=== PATIENT | male | born 1950 | race Caucasian/White ===

== ENCOUNTER 2016-09-02 10:28 | Emergency (ER) | payer MEDICARE, BC ==
[~2016-09-02] VITALS: Ht 180.3 cm; Wt 100.0 kg
[~2016-09-02 10:28] MED LIST: AMIO200T42 PO; AMOX-367 PO; AMOX125T PO; AMOX1TAB61 PO; APIX5TAB PO; ARIP20TA8 PO; CEFD300C2 PO; CYCL-259 PO; DAPT500V6 IV; DOCU-30 PO; DOXY100C2 PO; DOXY100T PO; ECON15CR TP; FENT-58 TP; FLUT15.88 NS; FLUV150C2 PO; FURO20TA3 PO; HYDR-3138 PO; HYDR2TAB40 PO; LACT1CAP44 PO; LEVO50TA5 PO; LOSA25TA5 PO; METH-438 PO; MISO100T4 PO; NABU500T PO; ONDA4TAB13 SL; OXAZ10CA PO; OXYC20TA2 PO; PANT40TA3 PO; PANT40TA5 PO; POLY17PO5 PO; PRED10TA PO; PREG150C PO; PROP20TA PO; RIFA300C3 PO; SENN8.6T4 PO; TAMS0.4C2 PO; VERA120T5 PO; WARF10TA6 PO
[2016-09-02] MEDS ORDERED: ONDANSETRON 2MG/ML, 2ML IVPush ONE (11:00)
[2016-09-02] MEDS ORDERED: SODIUM CHLORIDE FLUSH 10ML SYR IVF ONE (11:00)
[2016-09-02] MEDS ORDERED: MORPHINE SULFATE 4 MG/ML, 1ML ONE ×2 (11:16→11:55)
[2016-09-02] MEDS ORDERED: ONDANSETRON 2MG/ML, 2ML ONE (11:16)
[2016-09-02] MEDS: MORPHINE SULFATE 4 MG/ML, 1ML IVPush PRN ×2 (11:28→12:01)
[2016-09-02 11:49] LABS: HEMOGLOBIN 12.9 g/dL (13.7-18.0)
[2016-09-02 12:02] LABS: BLOOD UREA NITROGEN 19 mg/dL (7-18)
[2016-09-02 12:07] LABS: ASPARTATE AMINO TRANSFERASE 44 U/L (15-37)
[2016-09-02] MEDS ORDERED: PROPOFOL 0 ML IV ONE (12:41)
[2016-09-02] MEDS ORDERED: PROPOFOL 10 MG/ML, 20ML ONE (12:42)
[2016-09-02] MEDS ORDERED: PROPOFOL 10 MG/ML, 20ML IVP ONE (13:00)
[2016-09-02 15:22] VITALS: BP 109/51
== END 2016-09-02 16:50 | disposition home or self-care (01) ==
LOC: ED 13:07
DX: T84.021A Dislocation of internal left hip prosthesis, initial encounter (principal); I10 Essential (primary) hypertension; F32.9 Major depressive disorder, single episode, unspecified; I48.91 Unspecified atrial fibrillation; W05.0XXA Fall from non-moving wheelchair, initial encounter; Y93.89 Activity, other specified; Y92.129 Unspecified place in nursing home as the place of occurrence of the external cause; Y99.8 Other external cause status; N40.0 Benign prostatic hyperplasia without lower urinary tract symptoms; Z86.718 Personal history of other venous thrombosis and embolism; Z98.890 Other specified postprocedural states
CPT/HCPCS: 27265; 36415; 71010; 73501; 73502; 80053; 85025; 85610; 85730; 93005; 96374; 96375; 96376; 99152; 99285; J2405; J2704

== ENCOUNTER 2016-09-19 16:08 | Inpatient (IN) | payer MEDICARE, BC ==
[~2016-09-19] VITALS: Ht 180.3 cm; Wt 107.0 kg
[2016-09-19] MEDS ORDERED: SODIUM CHLORIDE FLUSH 10ML SYR IVF ONE (16:30)
[2016-09-19] MEDS ORDERED: ONDANSETRON 2MG/ML, 2ML IVPush ONE (16:30)
[2016-09-19] MEDS ORDERED: DOCU-30 PO (16:31)
[2016-09-19] MEDS ORDERED: METH20TA5 PO (16:31)
[2016-09-19] MEDS ORDERED: PROP20TA PO (16:31)
[2016-09-19] MEDS ORDERED: OXYC20TA2 PO (16:31)
[2016-09-19] MEDS ORDERED: FLUV150C2 PO (16:31)
[2016-09-19] MEDS ORDERED: VERA180T56 PO (16:32)
[2016-09-19] MEDS ORDERED: LEVO50TA PO (16:32)
[2016-09-19] MEDS ORDERED: SENN-31 PO (16:32)
[2016-09-19] MEDS ORDERED: HYDROmorphone 1 MG/ML, 1ML ONE ×2 (16:35→17:39)
[2016-09-19] MEDS ORDERED: ONDANSETRON 2MG/ML, 2ML ONE (16:35)
[2016-09-19] MEDS: HYDROmorphone 1 MG/ML, 1ML IVPush PRN ×2 (16:37→17:41)
[2016-09-19] MEDS ORDERED: PROPOFOL 10 MG/ML, 20ML IVPush ONE (18:00)
[2016-09-19] MEDS ORDERED: PROPOFOL 10 MG/ML, 20ML ONE (18:06)
[2016-09-19 19:03] LABS: HEMOGLOBIN 11.7 g/dL (13.7-18.0)
[2016-09-19 19:15] LABS: BLOOD UREA NITROGEN 21 mg/dL (7-18)
[2016-09-19] MEDS ORDERED: METOPROLOL TARTRATE 25 MG TABLET PO ONE (19:30)
[2016-09-19] MEDS ORDERED: HYDROcodone/APAP 5/325 TABLET PO PRN (20:00)
[2016-09-19] MEDS ORDERED: POLYETHYLENE GLYCOL 17 GM PACKET PO PRN (20:30)
[2016-09-19] MEDS ORDERED: ONDANSETRON 2MG/ML, 2ML IVP PRN (20:30)
[2016-09-19] MEDS ORDERED: MORPHINE SULFATE 4 MG/ML, 1ML IVPush PRN (20:30)
[2016-09-19] MEDS ORDERED: ACETAMINOPHEN 325 MG TABLET PO PRN (20:30)
[2016-09-19] MEDS ORDERED: OxyconTIN ER 20 MG TAB.ER PO SCH (21:00)
[2016-09-19] MEDS ORDERED: PROPRANOLOL 20 MG TABLET PO SCH (21:00)
[2016-09-19] MEDS: FLUVOXAMINE MALEATE 150 MG HOMEMEDPO SCH (21:00)
[2016-09-19 21:02] LABS: IS PT STATUS REG ER OR PRE ER? YES
[2016-09-19 21:25] VITALS: BP 137/74
[2016-09-19] MEDS: AMIODARONE 200 MG TABLET PO SCH (22:12)
[2016-09-19] MEDS: DOXYCYCLINE 100MG TABLET PO SCH (22:12)
[2016-09-19] MEDS: PREGABALIN 150 MG CAPSULE PO SCH (22:12)
[2016-09-19] MEDS: TAMSULOSIN 0.4 MG CAP.ER.24H PO SCH (22:12)
[2016-09-19] MEDS: SENNA/DOCUSATE TABLET PO SCH (22:12)
[2016-09-19] MEDS: OXAZEPAM 10 MG CAPSULE PO SCH (22:13)
[2016-09-19] MEDS: ENOXAPARIN 40 MG/0.4 ML SQ SCH (22:15)
[2016-09-19] MEDS: SODIUM CHLORIDE FLUSH 10ML SYR IVF SCH (22:18)
[2016-09-19] MEDS: METHYLPHENIDATE 10 MG TABLET PO SCH (22:18)
[2016-09-19] MEDS: ARIPIPRAZOLE 10 MG TABLET PO SCH (22:23)
[2016-09-20 01:23] VITALS: BP 123/77
[2016-09-20] MEDS: LEVOTHYROXINE 50 MCG TABLET PO SCH (05:08)
[2016-09-20] MEDS: CEFTRIAXONE PMX 2GM/50ML 50 ML IV SCH (05:08)
[2016-09-20 05:50] LABS: HEMOGLOBIN 11.1 g/dL (13.7-18.0)
[2016-09-20] MEDS ORDERED: METOPROLOL TARTRATE 25 MG TABLET PO SCH ×2 (06:00)
[2016-09-20 06:11] LABS: ASPARTATE AMINO TRANSFERASE 14 U/L (15-37); BLOOD UREA NITROGEN 18 mg/dL (7-18)
[2016-09-20 06:20] LABS: IS PT STATUS REG ER OR PRE ER? NO
[2016-09-20 08:15] VITALS: BP 123/69
[2016-09-20] MEDS: SODIUM CHLORIDE FLUSH 10ML SYR IVF SCH ×2 (09:00→21:34)
[2016-09-20] MEDS ORDERED: PROPRANOLOL 20 MG TABLET PO SCH (09:00)
[2016-09-20] MEDS: MISOPROSTOL 100 MCG TABLET PO SCH (09:00)
[2016-09-20] MEDS: FLUTICASONE NASAL SPRAY 16GM NAS SCH (09:00)
[2016-09-20] MEDS: OXAZEPAM 10 MG CAPSULE PO SCH ×3 (10:30→21:29)
[2016-09-20] MEDS: PREGABALIN 150 MG CAPSULE PO SCH ×2 (10:30→21:28)
[2016-09-20] MEDS: AMIODARONE 200 MG TABLET PO SCH (10:31)
[2016-09-20] MEDS: DOXYCYCLINE 100MG TABLET PO SCH ×2 (10:31→21:28)
[2016-09-20] MEDS: OxyconTIN ER 10 MG TAB.ER PO SCH ×3 (10:31→21:33)
[2016-09-20] MEDS: METHYLPHENIDATE 10 MG TABLET PO SCH ×2 (10:33→21:28)
[2016-09-20 11:19] LABS: IS PT STATUS REG ER OR PRE ER? NO
[2016-09-20 14:30] VITALS: BP 109/66
[2016-09-20 20:29] VITALS: BP 111/68
[2016-09-20] MEDS: FLUVOXAMINE MALEATE 150 MG HOMEMEDPO SCH (21:00)
[2016-09-20] MEDS: ARIPIPRAZOLE 10 MG TABLET PO SCH (21:00)
[2016-09-20] MEDS: SENNA/DOCUSATE TABLET PO SCH (21:29)
[2016-09-20] MEDS: TAMSULOSIN 0.4 MG CAP.ER.24H PO SCH (21:29)
[2016-09-20] MEDS: ENOXAPARIN 40 MG/0.4 ML SQ SCH (21:35)
[2016-09-21 02:25] VITALS: BP 112/62
[2016-09-21] MEDS: LEVOTHYROXINE 50 MCG TABLET PO SCH (05:18)
[2016-09-21] MEDS: CEFTRIAXONE PMX 2GM/50ML 50 ML IV SCH (05:18)
[2016-09-21 08:30] VITALS: BP 107/62
[2016-09-21] MEDS ORDERED: AMIODARONE 200 MG TABLET PO SCH (09:00)
[2016-09-21] MEDS ORDERED: VERAPAMIL ER 180MG TABLET.ER PO SCH (09:00)
[2016-09-21] MEDS: SODIUM CHLORIDE FLUSH 10ML SYR IVF SCH (10:18)
[2016-09-21] MEDS: FLUTICASONE NASAL SPRAY 16GM NAS SCH (10:19)
[2016-09-21] MEDS: PREGABALIN 150 MG CAPSULE PO SCH (10:19)
[2016-09-21] MEDS: DOXYCYCLINE 100MG TABLET PO SCH (10:19)
[2016-09-21] MEDS: OXAZEPAM 10 MG CAPSULE PO SCH (10:19)
[2016-09-21] MEDS: OxyconTIN ER 10 MG TAB.ER PO SCH (10:20)
[2016-09-21] MEDS: MISOPROSTOL 100 MCG TABLET PO SCH (10:22)
[2016-09-21] MEDS: METHYLPHENIDATE 10 MG TABLET PO SCH (11:36)
[2016-09-21] MEDS ORDERED: POLY17PO5 PO (13:35)
[2016-09-21] MEDS ORDERED: CEFD300C2 PO (13:35)
[2016-09-21] MEDS ORDERED: APIX5TAB PO (13:35)
[2016-09-21] MEDS ORDERED: AMIO200T42 PO (13:35)
[2016-09-21 14:37] VITALS: BP 101/64
== END 2016-09-21 15:30 | disposition home or self-care (01) | DRG 559 ==
LOC: ED 19:04 → EDIP 19:31 → 5SO 21:09
PROC: 0SS9XZZ Reposition Right Hip Joint, External Approach (ICD-10-PCS; principal; 2016-09-19)
DX: T84.020A Dislocation of internal right hip prosthesis, initial encounter (principal); E43 Unspecified severe protein-calorie malnutrition; I47.2 Ventricular tachycardia; N39.0 Urinary tract infection, site not specified; D68.69 Other thrombophilia; Y79.2 Prosthetic and other implants, materials and accessory orthopedic devices associated with adverse incidents; E03.9 Hypothyroidism, unspecified; F32.9 Major depressive disorder, single episode, unspecified; F41.9 Anxiety disorder, unspecified; Z79.2 Long term (current) use of antibiotics; I10 Essential (primary) hypertension; N40.0 Benign prostatic hyperplasia without lower urinary tract symptoms; F90.9 Attention-deficit hyperactivity disorder, unspecified type; Z96.643 Presence of artificial hip joint, bilateral; F42.9 Obsessive-compulsive disorder, unspecified; K82.9 Disease of gallbladder, unspecified; I48.2 Chronic atrial fibrillation; M54.9 Dorsalgia, unspecified; G89.29 Other chronic pain; G43.909 Migraine, unspecified, not intractable, without status migrainosus; D64.9 Anemia, unspecified; R31.9 Hematuria, unspecified; M16.11 Unilateral primary osteoarthritis, right hip; G25.0 Essential tremor; Z87.891 Personal history of nicotine dependence; Z86.718 Personal history of other venous thrombosis and embolism; Z87.440 Personal history of urinary (tract) infections; Z86.14 Personal history of Methicillin resistant Staphylococcus aureus infection; Z91.041 Radiographic dye allergy status; Z68.32 Body mass index [BMI] 32.0-32.9, adult; Z79.01 Long term (current) use of anticoagulants
CPT/HCPCS: 27265; 36415; 71010; 80048; 80053; 81001; 82040; 83735; 84439; 84443; 84484; 85025; 87077; 87086; 87186; 93005; 93306; 99152; 99153; J0696; J1170; J1650; J2405; J2704

== ENCOUNTER → 2016-11-22 | Outpatient (CLI) | payer MEDICARE, BC ==
[~2016-11-22] MED LIST changes: -CEFD300C2 PO; +CEFD300C37 PO; +LEVO50TA PO; +METH20TA5 PO; +SENN-31 PO; +VERA180T56 PO; +VISIPAQUE 270 MG/ML, 50ML BOTTLE ONE
== END | disposition home or self-care (01) ==
LOC: RAD 08:16
PROVIDERS: ATTEND Internal Medicine Infectious Disease
DX: Z45.2 Encounter for adjustment and management of vascular access device (principal); Z79.2 Long term (current) use of antibiotics
CPT/HCPCS: 36569; 76937; 77001; C1751; Q9966

== ENCOUNTER → 2017-01-17 | Outpatient (CLI) | payer MEDICARE, BC ==
[~2017-01-17] MED LIST changes: -VISIPAQUE 270 MG/ML, 50ML BOTTLE ONE
== END | disposition home or self-care (01) ==
LOC: EDSTATUS 01-06 13:00 → CFH 10:51
PROVIDERS: ATTEND Psychiatry & Neurology Neurology
DX: G25.2 Other specified forms of tremor (principal); G93.89 Other specified disorders of brain; G31.9 Degenerative disease of nervous system, unspecified
CPT/HCPCS: 70551

== ENCOUNTER 2017-03-02 08:20 | Emergency (ER) | payer MEDICARE, BC ==
[~2017-03-02] VITALS: Ht 180.3 cm; Wt 110.0 kg
[~2017-03-02 08:20] MED LIST changes: +ARIP20TA5 PO; -ARIP20TA8 PO; +DOCU-131 PO; -DOCU-30 PO; -HYDR-3138 PO; +HYDR-3237 PO; +SENN-87 PO; -SENN8.6T4 PO
[2017-03-02 09:19] LABS: HEMOGLOBIN 12.3 g/dL (13.7-18.0); WHITE BLOOD COUNT 4.9 x10^3/uL (3.4-10)
[2017-03-02 09:29] LABS: BLOOD UREA NITROGEN 23 mg/dL (7-18)
[2017-03-02 13:28] VITALS: BP 134/79
[2017-03-02] MEDS ORDERED: PERMETHRIN CRM 5%, 60GM TP SCH (14:00)
[2017-03-02] MEDS ORDERED: POLYETHYLENE GLYCOL 17 GM PACKET PO PRN (14:00)
[2017-03-02] MEDS ORDERED: ENOXAPARIN 100 MG/ML SQ SCH (14:30)
[2017-03-02] MEDS ORDERED: OXAZEPAM 10 MG CAPSULE PO SCH (16:00)
[2017-03-02] MEDS ORDERED: WARFARIN 2.5 MG TABLET PO-COUM SCH (18:00)
[2017-03-02] MEDS ORDERED: METHYLPHENIDATE HCL 30 MG PO SCH (21:00)
[2017-03-02] MEDS ORDERED: PREGABALIN 150 MG CAPSULE PO SCH (21:00)
[2017-03-02] MEDS ORDERED: CEFDINIR 300 MG CAPSULE PO SCH (21:00)
[2017-03-02] MEDS ORDERED: ARIPIPRAZOLE 10 MG PO SCH (21:00)
[2017-03-02] MEDS ORDERED: VERAPAMIL ER 180MG TABLET.ER PO SCH (21:00)
[2017-03-02] MEDS ORDERED: TAMSULOSIN 0.4 MG CAP.ER.24H PO SCH (21:00)
[2017-03-02] MEDS ORDERED: FLUVOXAMINE MALEATE 150 MG PO SCH (21:00)
[2017-03-03] MEDS ORDERED: LEVOTHYROXINE 50 MCG TABLET PO SCH (06:00)
[2017-03-03] MEDS ORDERED: MISOPROSTOL 25 MCG TABLET PO SCH (09:00)
[2017-03-03] MEDS ORDERED: FLUTICASONE PROPIONATE NS SCH (09:00)
[2017-03-03] MEDS ORDERED: AMIODARONE 200 MG TABLET PO SCH (09:00)
[2017-03-03] MEDS ORDERED: DOCUSATE 100 MG CAPSULE PO SCH (09:00)
== END 2017-03-02 15:26 | disposition home or self-care (01) ==
LOC: ED 09:44
DX: I87.2 Venous insufficiency (chronic) (peripheral) (principal); B86 Scabies; I10 Essential (primary) hypertension
CPT/HCPCS: 36415; 80048; 82040; 85025; 85610; 93005; 93970; 99285

== ENCOUNTER 2017-06-28 20:05 | Emergency (ER) | payer MEDICARE, BC ==
[~2017-06-28] VITALS: Ht 180.3 cm; Wt 108.8 kg
[2017-06-28 21:11] LABS: MICROSCOPIC NOT IND
[2017-06-28 21:12] LABS: CULTURE INDICATED? NO
[2017-06-28 21:20] LABS: BASOPHILS # (AUTO) 0.05 x10^3/uL (0-0.1); BASOPHILS % (AUTO) 1 % (0-1); EOSINOPHILS # (AUTO) 0.25 x10^3/uL (0-0.4); EOSINOPHILS % (AUTO) 4 % (1-7); LYMPHOCYTES # (AUTO) 1.05 x10^3/uL (1-3.4); LYMPHOCYTES % (AUTO) 18 % (22-44); MD NO; MEAN CORPUSCULAR HEMOGLOBIN 26.9 pg (27.5-34.5); MEAN CORPUSCULAR HGB CONC 32.2 g/dL (33.2-36.2); MEAN CORPUSCULAR VOLUME 83.3 fL (81-97); MEAN PLATELET VOLUME 7.8 fL (7.4-10.4); MONOCYTES # (AUTO) 0.75 x10^3/uL (0.2-0.8); MONOCYTES % (AUTO) 13 % (2-9); NEUTROPHILS # (AUTO) 3.59 x10^3/uL (1.8-6.8); NEUTROPHILS % (AUTO) 63 % (42-75); PLATELET COUNT 224 x10^3/uL (130-400); RED BLOOD COUNT 4.99 x10^6/uL (4.38-5.82); RED CELL DISTRIBUTION WIDTH 17.3 % (9.4-14.8)
[2017-06-28 21:27] LABS: ALANINE AMINOTRANSFERASE 21 U/L (12-78); ALBUMIN 3.6 g/dL (3.4-5.0); ANION GAP 8 mmol/L (5-15); CALCIUM 8.7 mg/dL (8.5-10.1); CHLORIDE 110 mmol/L (98-107); CREATININE 1.31 mg/dL (0.7-1.3)
[2017-06-28 21:29] LABS: ALKALINE PHOSPHATASE 103 U/L (45-117); BILIRUBIN,TOTAL 0.3 mg/dL (0.2-1.0); TOTAL PROTEIN 7.4 g/dL (6.4-8.2)
[2017-06-28] MEDS ORDERED: TRAZ100T15 PO (21:37)
[2017-06-28] MEDS ORDERED: WARF2.5T73 PO (21:37)
[2017-06-28 22:00] VITALS: BP 135/69
== END 2017-06-28 23:04 ==
LOC: ED 21:58
DX: M54.5 Low back pain (principal); B02.9 Zoster without complications; F42.9 Obsessive-compulsive disorder, unspecified; I10 Essential (primary) hypertension; Z86.718 Personal history of other venous thrombosis and embolism
CPT/HCPCS: 36415; 76770; 80053; 81003; 83690; 85025; 99285

== ENCOUNTER 2017-07-13 18:36 | Emergency (ER) | payer MEDICARE, BC ==
[~2017-07-13] VITALS: Ht 180.3 cm; Wt 110.0 kg
[~2017-07-13 18:36] MED LIST changes: +TRAZ100T15 PO; +WARF2.5T73 PO
[2017-07-13] MEDS ORDERED: DIAZEPAM 5 MG/ML, 10ML VIAL IVPush ONE (19:00)
[2017-07-13] MEDS ORDERED: HYDROmorphone 1 MG/ML, 1ML IVPush PRN (19:00)
[2017-07-13] MEDS ORDERED: SODIUM CHLORIDE FLUSH 10ML SYR IVF ONE (19:00)
[2017-07-13 19:31] LABS: BASOPHILS # (AUTO) 0.09 x10^3/uL (0-0.1); BASOPHILS % (AUTO) 1 % (0-1); EOSINOPHILS # (AUTO) 0.35 x10^3/uL (0-0.4); EOSINOPHILS % (AUTO) 4 % (1-7); LYMPHOCYTES # (AUTO) 1.93 x10^3/uL (1-3.4); LYMPHOCYTES % (AUTO) 21 % (22-44); MD NO; MEAN CORPUSCULAR HEMOGLOBIN 26.8 pg (27.5-34.5); MEAN CORPUSCULAR HGB CONC 32.3 g/dL (33.2-36.2); MEAN CORPUSCULAR VOLUME 83.1 fL (81-97); MEAN PLATELET VOLUME 7.5 fL (7.4-10.4); MONOCYTES # (AUTO) 0.88 x10^3/uL (0.2-0.8); MONOCYTES % (AUTO) 9 % (2-9); NEUTROPHILS # (AUTO) 6.16 x10^3/uL (1.8-6.8); NEUTROPHILS % (AUTO) 66 % (42-75); PLATELET COUNT 334 x10^3/uL (130-400); RED BLOOD COUNT 4.92 x10^6/uL (4.38-5.82)
[2017-07-13] MEDS ORDERED: HYDROmorphone 1 MG/ML, 1ML ONE (19:34)
[2017-07-13 19:42] LABS: INTERNATIONAL NORMALIZED RATIO 1.05 (0.93-1.1); PROTHROMBIN TIME 10.9 Seconds (9.6-11.5)
[2017-07-13 19:43] LABS: ALANINE AMINOTRANSFERASE 19 U/L (12-78); ALBUMIN 3.6 g/dL (3.4-5.0); ANION GAP 9 mmol/L (5-15); CALCIUM 8.4 mg/dL (8.5-10.1); CHLORIDE 112 mmol/L (98-107); CREATININE 1.05 mg/dL (0.7-1.3); SALICYLATE LEVEL 2.7 mg/dL (2.8-20.0)
[2017-07-13 19:46] LABS: ALKALINE PHOSPHATASE 92 U/L (45-117); BILIRUBIN,TOTAL 0.3 mg/dL (0.2-1.0)
[2017-07-13 20:28] LABS: MICROSCOPIC NOT IND
[2017-07-13 20:33] LABS: CULTURE INDICATED? NO
[2017-07-13 21:34] VITALS: BP 168/84
== END 2017-07-13 21:43 | disposition home or self-care (01) ==
LOC: ED 18:49
DX: M54.5 Low back pain (principal); M54.6 Pain in thoracic spine; I48.91 Unspecified atrial fibrillation; F42.9 Obsessive-compulsive disorder, unspecified
CPT/HCPCS: 36415; 71046; 80053; 80329; 81003; 83605; 85025; 85610; 85730; 93005; 96374; 96375; 99285; J1170; J3360; G0480

== ENCOUNTER → 2018-02-20 | Outpatient (CLI) | payer MEDICARE, BC ==
[~2018-02-20] MED LIST changes: +ARIP5TAB13 PO; +BACL-19 PO; -LOSA25TA5 PO; +LOSA25TA6 PO; -OXAZ10CA PO; +OXAZ10CA26 PO; +PRED5TAB PO; +TRAZ-137 PO; -TRAZ100T15 PO; +WARF10TA43 PO; -WARF10TA6 PO
[2018-02-20 11:10] LABS: BASOPHILS # (AUTO) 0.05 x10^3/uL (0-0.1); BASOPHILS % (AUTO) 1 % (0-1); EOSINOPHILS % (AUTO) 1 % (1-7); LYMPHOCYTES # (AUTO) 1.21 x10^3/uL (1-3.4); LYMPHOCYTES % (AUTO) 17 % (22-44); MD NO; MEAN CORPUSCULAR HEMOGLOBIN 27.9 pg (27.5-34.5); MEAN CORPUSCULAR HGB CONC 33.1 g/dL (33.2-36.2); MEAN CORPUSCULAR VOLUME 84.3 fL (81-97); MEAN PLATELET VOLUME 7.6 fL (7.4-10.4); MONOCYTES # (AUTO) 0.45 x10^3/uL (0.2-0.8); MONOCYTES % (AUTO) 6 % (2-9); NEUTROPHILS # (AUTO) 5.25 x10^3/uL (1.8-6.8); NEUTROPHILS % (AUTO) 74 % (42-75); PLATELET COUNT 261 x10^3/uL (130-400); RED BLOOD COUNT 4.79 x10^6/uL (4.38-5.82); RED CELL DISTRIBUTION WIDTH 17.9 % (9.4-14.8)
[2018-02-20 11:23] LABS: ALBUMIN 3.5 g/dL (3.4-5.0); ANION GAP 5 mmol/L (5-15); CALCIUM 8.9 mg/dL (8.5-10.1); CHLORIDE 108 mmol/L (98-107)
[2018-02-20 11:27] LABS: ALANINE AMINOTRANSFERASE 19 U/L (12-78); ALKALINE PHOSPHATASE 98 U/L (45-117); BILIRUBIN,TOTAL 0.4 mg/dL (0.2-1.0); CREATININE 1.05 mg/dL (0.7-1.3); TOTAL PROTEIN 7.7 g/dL (6.4-8.2)
[2018-02-20 11:32] LABS: INTERNATIONAL NORMALIZED RATIO 1.06 (0.93-1.1)
[2018-02-20 12:20] LABS: CULTURE INDICATED? NO; MICROSCOPIC NOT IND
== END | disposition home or self-care (01) ==
LOC: STAR 09:53
PROVIDERS: ATTEND Orthopaedic Surgery Adult Reconstructive Orthopaedic Surgery
DX: Z01.818 Encounter for other preprocedural examination (principal); T84.84XS Pain due to internal orthopedic prosthetic devices, implants and grafts, sequela; Z96.641 Presence of right artificial hip joint; Z87.891 Personal history of nicotine dependence
CPT/HCPCS: 36415; 80053; 81003; 85025; 85610; 85730; 87081; 93005

== ENCOUNTER 2018-03-03 09:57 | Inpatient (IN) | payer MEDICARE, BC ==
[~2018-03-03] VITALS: Ht 180.3 cm; Wt 104.7 kg
[2018-03-03] MEDS ORDERED: LACTATED RINGERS 1,000 ML IV SCH (12:31)
[2018-03-03] MEDS ORDERED: MIDAZOLAM 1 MG/ML, 2ML ONE (12:34)
[2018-03-03] MEDS ORDERED: FENTANYL PF 250 MCG/5ML ONE (12:34)
[2018-03-03] MEDS ORDERED: ACETAMINOPHEN 500 MG TABLET ONE (13:07)
[2018-03-03] MEDS ORDERED: GABAPENTIN 300 MG CAPSULE ONE (13:07)
[2018-03-03] MEDS ORDERED: CEFAZOLIN 1,000 MG ONE (13:20)
[2018-03-03] MEDS ORDERED: EPHEDRINE 50 MG/ML, 1ML ONE (13:20)
[2018-03-03] MEDS ORDERED: ROCURONIUM 10 MG/ML,10ML ONE (13:20)
[2018-03-03] MEDS ORDERED: PROPOFOL 10 MG/ML, 20ML ONE (13:20)
[2018-03-03] MEDS ORDERED: GLYCOPYRROLATE 0.2MG/1ML, 5ML ONE (13:20)
[2018-03-03] MEDS ORDERED: ONDANSETRON 2MG/ML, 2ML ONE (13:20)
[2018-03-03] MEDS ORDERED: NEOSTIGMINE 1 MG/ML, 10ML ONE (13:20)
[2018-03-03] MEDS ORDERED: PHENYLEPHRINE 10 MG/ML ONE (13:20)
[2018-03-03] MEDS ORDERED: VANCOMYCIN 1,000 MG ONE (13:35)
[2018-03-03] MEDS ORDERED: TRANEXAMIC ACID 100 MG/ML, 10ML ONE (13:35)
[2018-03-03] MEDS ORDERED: HYDROCORTISONE 100 MG INJ. ONE (13:39)
[2018-03-03] MEDS ORDERED: LORazepam 2 MG/ML, 1ML IVPush PRN (14:00)
[2018-03-03] MEDS ORDERED: MEPERIDINE/PF 25MG/0.5ML IVPush PRN (14:00)
[2018-03-03] MEDS ORDERED: FENTANYL PF 100 MCG/2ML IV PRN (14:00)
[2018-03-03] MEDS ORDERED: OXYcodone 5 MG/5 ML ORAL.SOL UDC PO PRN (14:00)
[2018-03-03] MEDS ORDERED: ALBUTEROL SULFATE 2.5 MG/3 ML NPPB PRN (14:00)
[2018-03-03] MEDS ORDERED: OXYcodone 5 MG/5 ML ORAL.SOL UDC ONE (15:28)
[2018-03-03] MEDS ORDERED: HYDROmorphone 2 MG/ML, 1ML ONE ×2 (15:28→21:25)
[2018-03-03] MEDS ORDERED: MAGNESIUM HYDROXIDE 8%, 30ML UDC PO PRN (15:30)
[2018-03-03] MEDS ORDERED: ONDANSETRON 2MG/ML, 2ML IV PRN (15:30)
[2018-03-03] MEDS ORDERED: ZOLPIDEM 5MG TABLET PO PRN (15:30)
[2018-03-03] MEDS ORDERED: SENNA/DOCUSATE TABLET PO PRN (15:30)
[2018-03-03] MEDS ORDERED: DIPHENHYDRAMINE 25 MG CAPSULE PO PRN (15:30)
[2018-03-03] MEDS ORDERED: PROMETHAZINE 12.5 MG SUPP PR PRN (15:30)
[2018-03-03] MEDS ORDERED: HYDROcodone/APAP 10/325 MG TABLET PO PRN (15:30)
[2018-03-03] MEDS ORDERED: PROMETHAZINE 25 MG/ML, 1ML IM PRN (15:30)
[2018-03-03] MEDS ORDERED: ONDANSETRON 4 MG TABLET PO PRN (15:30)
[2018-03-03] MEDS ORDERED: HYDROmorphone 1 MG/ML, 1ML IV PRN (15:30)
[2018-03-03] MEDS: HYDROmorphone 1 MG/ML, 1ML IV PRN ×2 (15:31→15:51)
[2018-03-03] MEDS ORDERED: TRANEXAMIC ACID 1,000 MG in SODIUM CHLORIDE 0.9% 100 ML IVPB ONE (16:00)
[2018-03-03 16:40] VITALS: BP 138/72
[2018-03-03] MEDS: D5%-0.45% NACL 1,000 ML IV SCH (17:50)
[2018-03-03] MEDS: ASPIRIN 81 MG TABLET EC PO SCH (17:50)
[2018-03-03] MEDS: BACLOFEN 10 MG TABLET PO SCH ×2 (17:50→21:13)
[2018-03-03] MEDS: OXYcodone IR 5MG TABLET PO PRN (19:37)
[2018-03-03] MEDS: TAMSULOSIN 0.4 MG CAP.ER.24H PO SCH (19:42)
[2018-03-03 20:12] VITALS: BP 131/68
[2018-03-03] MEDS: METHYLPHENIDATE 10 MG TABLET PO SCH (21:00)
[2018-03-03] MEDS ORDERED: FLUVOXAMINE 100MG TABLET PO SCH (21:00)
[2018-03-03] MEDS: TRAZODONE 100MG TABLET PO SCH (21:12)
[2018-03-03] MEDS: VERAPAMIL ER 180MG TABLET.ER PO SCH (21:13)
[2018-03-03] MEDS: CEFAZOLIN PMX 1GM/50ML 50 ML IVPB SCH (21:19)
[2018-03-03] MEDS: FLUVOXAMINE 50MG TABLET PO SCH (21:19)
[2018-03-04 00:20] VITALS: BP 114/67
[2018-03-04] MEDS: OXYcodone IR 5MG TABLET PO PRN ×4 (00:27→20:57)
[2018-03-04] MEDS: D5%-0.45% NACL 1,000 ML IV SCH ×3 (01:12→21:12)
[2018-03-04 04:56] VITALS: BP 129/85
[2018-03-04] MEDS: ASPIRIN 81 MG TABLET EC PO SCH ×2 (05:14→18:37)
[2018-03-04] MEDS: LEVOTHYROXINE 50 MCG TABLET PO SCH (05:14)
[2018-03-04] MEDS: CEFAZOLIN PMX 1GM/50ML 50 ML IVPB SCH (05:15)
[2018-03-04] MEDS ORDERED: DEXAMETHASONE 4 MG/ML, 1ML IVPush SCH (06:00)
[2018-03-04 08:08] VITALS: BP 114/71
[2018-03-04] MEDS: OXAZEPAM 10 MG CAPSULE HOMEMEDPO SCH ×2 (08:41→20:58)
[2018-03-04] MEDS: METHYLPHENIDATE 10 MG TABLET PO SCH (08:42)
[2018-03-04] MEDS: TAMSULOSIN 0.4 MG CAP.ER.24H PO SCH (08:43)
[2018-03-04] MEDS: ARIPIPRAZOLE 5 MG TABLET PO SCH (08:44)
[2018-03-04] MEDS: BACLOFEN 10 MG TABLET PO SCH ×3 (08:45→20:57)
[2018-03-04] MEDS: DOXYCYCLINE 100MG CAP PO SCH (08:46)
[2018-03-04] MEDS ORDERED: TAMSULOSIN 0.4 MG CAP.ER.24H PO SCH (09:00)
[2018-03-04 12:40] VITALS: BP 112/63
[2018-03-04] MEDS: KETOROLAC 30 MG/1 ML IV SCH ×2 (15:05→23:29)
[2018-03-04] MEDS ORDERED: METHYLPHENIDATE 10 MG TABLET PO ONE (18:15)
[2018-03-04 18:50] VITALS: BP 154/71
[2018-03-04 19:29] VITALS: BP 129/76
[2018-03-04] MEDS: FLUVOXAMINE 50MG TABLET PO SCH (20:57)
[2018-03-04] MEDS: TRAZODONE 100MG TABLET PO SCH (20:57)
[2018-03-04] MEDS: VERAPAMIL ER 180MG TABLET.ER PO SCH (20:58)
[2018-03-05 02:50] VITALS: BP 133/77
[2018-03-05] MEDS: OXYcodone IR 5MG TABLET PO PRN ×2 (02:52→08:21)
[2018-03-05] MEDS ORDERED: METHYLPHENIDATE 10 MG TABLET PO SCH (06:00)
[2018-03-05] MEDS: ASPIRIN 81 MG TABLET EC PO SCH (06:02)
[2018-03-05] MEDS: LEVOTHYROXINE 50 MCG TABLET PO SCH (06:03)
[2018-03-05] MEDS ORDERED: SENN1TAB8 PO (06:24)
[2018-03-05] MEDS ORDERED: ASPI-621 PO (06:24)
[2018-03-05] MEDS ORDERED: OXYC5TAB3 PO (06:24)
[2018-03-05] MEDS: D5%-0.45% NACL 1,000 ML IV SCH (07:12)
[2018-03-05 07:42] VITALS: BP 110/69
[2018-03-05] MEDS: BACLOFEN 10 MG TABLET PO SCH (07:59)
[2018-03-05] MEDS: KETOROLAC 30 MG/1 ML IV SCH (07:59)
[2018-03-05] MEDS: DOXYCYCLINE 100MG CAP PO SCH (07:59)
[2018-03-05] MEDS: TAMSULOSIN 0.4 MG CAP.ER.24H PO SCH (08:00)
[2018-03-05] MEDS: OXAZEPAM 10 MG CAPSULE HOMEMEDPO SCH (08:00)
[2018-03-05] MEDS: ARIPIPRAZOLE 5 MG TABLET PO SCH (08:02)
== END 2018-03-05 10:23 | disposition home health service (06) | DRG 468 ==
LOC: ORIP 11:11 → 4NOR 16:30
PROVIDERS: ADMIT Orthopaedic Surgery Adult Reconstructive Orthopaedic Surgery; ATTEND Orthopaedic Surgery Adult Reconstructive Orthopaedic Surgery
PROC: 0SUA09Z Supplement Right Hip Joint, Acetabular Surface with Liner, Open Approach (ICD-10-PCS; 2018-03-03)
PROC: 0QU Lower Bones, Supplement (ICD-10-PCS; 2018-03-03)
PROC: 0SP909Z Removal of Liner from Right Hip Joint, Open Approach (ICD-10-PCS; principal; 2018-03-03 13:30)
DX: T84.020A Dislocation of internal right hip prosthesis, initial encounter (principal); Y79.2 Prosthetic and other implants, materials and accessory orthopedic devices associated with adverse incidents; Y83.8 Other surgical procedures as the cause of abnormal reaction of the patient, or of later complication, without mention of misadventure at the time of the procedure; Y92.89 Other specified places as the place of occurrence of the external cause; Z79.82 Long term (current) use of aspirin; Z98.1 Arthrodesis status; Z91.041 Radiographic dye allergy status; Z88.8 Allergy status to other drugs, medicaments and biological substances; Z91.09 Other allergy status, other than to drugs and biological substances; G89.29 Other chronic pain; E66.9 Obesity, unspecified; I10 Essential (primary) hypertension; G25.0 Essential tremor; Z68.32 Body mass index [BMI] 32.0-32.9, adult
CPT/HCPCS: 36415; 72170; 85014; 85018; 86850; 86900; 87070; 87075; 87205; C1713; G0378; J0690; J1100; J1170; J1885; J2250; J2405; J2704; J2710; J3010; J3370; J3490; C1762; C1776; J1720; J2370; J7120

== ENCOUNTER 2018-03-15 09:40 | Inpatient (IN) | payer MEDICARE, BC ==
[~2018-03-15] VITALS: Ht 180.3 cm; Wt 105.7 kg
[~2018-03-15 09:40] MED LIST changes: +ASPI-621 PO; +OXYC5TAB3 PO; +SENN1TAB8 PO
[2018-03-15] MEDS ORDERED: SODIUM CHLORIDE FLUSH 10ML SYR IVF ONE (11:00)
[2018-03-15 11:29] LABS: BASOPHILS # (AUTO) 0.02 x10^3/uL (0-0.1); BASOPHILS % (AUTO) 0 % (0-1); EOSINOPHILS # (AUTO) 0.25 x10^3/uL (0-0.4); EOSINOPHILS % (AUTO) 3 % (1-7); LYMPHOCYTES # (AUTO) 0.94 x10^3/uL (1-3.4); LYMPHOCYTES % (AUTO) 12 % (22-44); MD NO; MEAN CORPUSCULAR HEMOGLOBIN 27.5 pg (27.5-34.5); MEAN CORPUSCULAR HGB CONC 32.6 g/dL (33.2-36.2); MEAN CORPUSCULAR VOLUME 84.3 fL (81-97); MEAN PLATELET VOLUME 6.7 fL (7.4-10.4); MONOCYTES # (AUTO) 0.73 x10^3/uL (0.2-0.8); MONOCYTES % (AUTO) 9 % (2-9); NEUTROPHILS # (AUTO) 5.77 x10^3/uL (1.8-6.8); NEUTROPHILS % (AUTO) 75 % (42-75); PLATELET COUNT 303 x10^3/uL (130-400); RED BLOOD COUNT 3.33 x10^6/uL (4.38-5.82); RED CELL DISTRIBUTION WIDTH 18.8 % (9.4-14.8)
[2018-03-15 11:37] LABS: INTERNATIONAL NORMALIZED RATIO 1.09 (0.93-1.1); PROTHROMBIN TIME 11.3 Seconds (9.6-11.5)
[2018-03-15 11:39] LABS: ALBUMIN 2.8 g/dL (3.4-5.0); ANION GAP 7 mmol/L (5-15); CALCIUM 8.3 mg/dL (8.5-10.1); CHLORIDE 106 mmol/L (98-107); CREATININE 1.05 mg/dL (0.7-1.3)
[2018-03-15 13:09] LABS: MICROSCOPIC AUTO
[2018-03-15 13:31] LABS: CULTURE INDICATED? YES
[2018-03-15] MEDS ORDERED: SODIUM CHLORIDE FLUSH 10ML SYR IVF PRN (14:00)
[2018-03-15] MEDS ORDERED: HYDROcodone/APAP 5/325 TABLET PO PRN (14:30)
[2018-03-15] MEDS ORDERED: VANCOMYCIN PER PHARMACY MC PRN (14:30)
[2018-03-15] MEDS ORDERED: DOCUSATE 100 MG CAPSULE PO PRN (14:30)
[2018-03-15] MEDS ORDERED: morphine SULFATE 10 MG/ML, 1ML IVPush PRN (14:30)
[2018-03-15] MEDS ORDERED: POLYETHYLENE GLYCOL 17 GM PACKET PO PRN (14:30)
[2018-03-15] MEDS ORDERED: ACETAMINOPHEN 325 MG TABLET PO PRN (14:30)
[2018-03-15] MEDS ORDERED: ONDANSETRON 2MG/ML, 2ML IVPush PRN (14:30)
[2018-03-15 14:55] VITALS: BP 131/69
[2018-03-15] MEDS ORDERED: PHARMACOKINETIC CONSULTATION MC ONE (15:30)
[2018-03-15] MEDS ORDERED: PHARMACOKINETIC MONITORING MC PRN (15:30)
[2018-03-15] MEDS: ERTAPENEM 1 GM in SODIUM CHLORIDE 0.9% 50 ML IV SCH (17:02)
[2018-03-15] MEDS: OXYcodone IR 5MG TABLET PO PRN (17:03)
[2018-03-15] MEDS: ASPIRIN 81 MG TABLET EC PO SCH (17:04)
[2018-03-15] MEDS: FUROSEMIDE 40 MG/4 ML IV SCH (17:04)
[2018-03-15] MEDS: ENOXAPARIN 40 MG/0.4 ML SQ SCH (17:17)
[2018-03-15] MEDS: VANCOMYCIN 2,000 MG in SODIUM CHLORIDE 0.9% 500 ML IV SCH (17:19)
[2018-03-15 20:00] VITALS: BP 131/71
[2018-03-15] MEDS: SODIUM CHLORIDE FLUSH 10ML SYR IVF SCH (21:00)
[2018-03-15] MEDS: METHYLPHENIDATE 10 MG TABLET PO SCH (21:00)
[2018-03-15] MEDS: OXAZEPAM 10 MG CAPSULE PO SCH (21:40)
[2018-03-15] MEDS: FAMOTIDINE 20 MG TABLET PO SCH (21:40)
[2018-03-15] MEDS: FLUVOXAMINE 50MG TABLET PO SCH (21:40)
[2018-03-15] MEDS: VERAPAMIL ER 180MG TABLET.ER PO SCH (21:40)
[2018-03-16 01:05] VITALS: BP 128/65
[2018-03-16] MEDS: OXYcodone IR 5MG TABLET PO PRN ×4 (01:17→22:00)
[2018-03-16 05:34] LABS: CHLORIDE 106 mmol/L (98-107)
[2018-03-16 05:51] LABS: ANION GAP 8 mmol/L (5-15); CALCIUM 8.1 mg/dL (8.5-10.1); CREATININE 1.03 mg/dL (0.7-1.3)
[2018-03-16] MEDS: ASPIRIN 81 MG TABLET EC PO SCH ×2 (06:10→17:25)
[2018-03-16 07:18] VITALS: BP 117/63
[2018-03-16] MEDS: FUROSEMIDE 40 MG/4 ML IV SCH ×2 (07:44→17:25)
[2018-03-16] MEDS: SODIUM CHLORIDE FLUSH 10ML SYR IVF SCH ×2 (07:45→22:00)
[2018-03-16] MEDS: TAMSULOSIN 0.4 MG CAP.ER.24H PO SCH (07:45)
[2018-03-16] MEDS: SENNA/DOCUSATE TABLET PO SCH (07:45)
[2018-03-16] MEDS: DOXYCYCLINE 100MG CAP PO SCH (07:46)
[2018-03-16] MEDS: ARIPIPRAZOLE 5 MG TABLET PO SCH (07:46)
[2018-03-16] MEDS: FAMOTIDINE 20 MG TABLET PO SCH ×2 (07:47→21:59)
[2018-03-16] MEDS: METHYLPHENIDATE 10 MG TABLET PO SCH ×3 (07:47→21:00)
[2018-03-16] MEDS: OXAZEPAM 10 MG CAPSULE PO SCH ×2 (07:47→21:59)
[2018-03-16 12:53] VITALS: BP 113/63
[2018-03-16] MEDS: ENOXAPARIN 40 MG/0.4 ML SQ SCH (13:49)
[2018-03-16] MEDS: ERTAPENEM 1 GM in SODIUM CHLORIDE 0.9% 50 ML IV SCH (13:49)
[2018-03-16] MEDS: VANCOMYCIN 2,000 MG in SODIUM CHLORIDE 0.9% 500 ML IV SCH (17:25)
[2018-03-16 19:07] VITALS: BP 136/68
[2018-03-16] MEDS ORDERED: METHYLPHENIDATE 10 MG TABLET PO SCH (21:00)
[2018-03-16] MEDS: VERAPAMIL ER 180MG TABLET.ER PO SCH (21:58)
[2018-03-16] MEDS: FLUVOXAMINE 50MG TABLET PO SCH (21:59)
[2018-03-17 01:50] VITALS: BP 124/71
[2018-03-17 05:40] LABS: BASOPHILS # (AUTO) 0.04 x10^3/uL (0-0.1); BASOPHILS % (AUTO) 1 % (0-1); EOSINOPHILS # (AUTO) 0.33 x10^3/uL (0-0.4); EOSINOPHILS % (AUTO) 5 % (1-7); LYMPHOCYTES # (AUTO) 1.04 x10^3/uL (1-3.4); LYMPHOCYTES % (AUTO) 15 % (22-44); MD NO; MEAN CORPUSCULAR HEMOGLOBIN 28.7 pg (27.5-34.5); MEAN CORPUSCULAR HGB CONC 33.7 g/dL (33.2-36.2); MEAN CORPUSCULAR VOLUME 84.9 fL (81-97); MEAN PLATELET VOLUME 7.4 fL (7.4-10.4); MONOCYTES # (AUTO) 0.77 x10^3/uL (0.2-0.8); MONOCYTES % (AUTO) 11 % (2-9); NEUTROPHILS # (AUTO) 4.86 x10^3/uL (1.8-6.8); NEUTROPHILS % (AUTO) 69 % (42-75); PLATELET COUNT 312 x10^3/uL (130-400); RED BLOOD COUNT 3.42 x10^6/uL (4.38-5.82); RED CELL DISTRIBUTION WIDTH 18.7 % (9.4-14.8)
[2018-03-17 05:54] LABS: ANION GAP 8 mmol/L (5-15); CALCIUM 8.5 mg/dL (8.5-10.1); CHLORIDE 103 mmol/L (98-107); CREATININE 1.14 mg/dL (0.7-1.3)
[2018-03-17] MEDS: ASPIRIN 81 MG TABLET EC PO SCH ×2 (06:06→16:58)
[2018-03-17] MEDS: METHYLPHENIDATE 10 MG TABLET PO SCH ×3 (06:36→19:54)
[2018-03-17 07:44] VITALS: BP 127/64
[2018-03-17] MEDS: FUROSEMIDE 40 MG/4 ML IV SCH ×2 (07:48→19:52)
[2018-03-17] MEDS: SODIUM CHLORIDE FLUSH 10ML SYR IVF SCH ×2 (07:48→19:53)
[2018-03-17] MEDS: ARIPIPRAZOLE 5 MG TABLET PO SCH (07:48)
[2018-03-17] MEDS: OXAZEPAM 10 MG CAPSULE PO SCH ×2 (07:49→19:53)
[2018-03-17] MEDS: FAMOTIDINE 20 MG TABLET PO SCH ×2 (07:49→19:53)
[2018-03-17] MEDS: TAMSULOSIN 0.4 MG CAP.ER.24H PO SCH (07:49)
[2018-03-17] MEDS: SENNA/DOCUSATE TABLET PO SCH (07:49)
[2018-03-17] MEDS: DOXYCYCLINE 100MG CAP PO SCH (07:50)
[2018-03-17] MEDS: OXYcodone IR 5MG TABLET PO PRN ×2 (08:01→13:07)
[2018-03-17] MEDS ORDERED: CEFTRIAXONE 1,000 MG IM SCH (09:00)
[2018-03-17] MEDS ORDERED: CEFTRIAXONE 1,000 MG IV SCH (11:00)
[2018-03-17] MEDS: CEFTRIAXONE PMX 1GM/50ML 50 ML IV SCH (11:07)
[2018-03-17 13:29] VITALS: BP 117/67
[2018-03-17] MEDS: ENOXAPARIN 40 MG/0.4 ML SQ SCH (16:58)
[2018-03-17 19:10] VITALS: BP 119/61
[2018-03-17] MEDS: FLUVOXAMINE 50MG TABLET PO SCH (19:53)
[2018-03-17] MEDS: VERAPAMIL ER 180MG TABLET.ER PO SCH (19:54)
[2018-03-18 01:03] VITALS: BP 119/64
[2018-03-18] MEDS: ASPIRIN 81 MG TABLET EC PO SCH (05:03)
[2018-03-18] MEDS: OXYcodone IR 5MG TABLET PO PRN (05:03)
[2018-03-18 05:25] LABS: CALCIUM 8.6 mg/dL (8.5-10.1); CHLORIDE 101 mmol/L (98-107)
[2018-03-18 05:29] LABS: ANION GAP 6 mmol/L (5-15); CREATININE 1.13 mg/dL (0.7-1.3)
[2018-03-18] MEDS ORDERED: POTASSIUM CHLORIDE 20 MEQ TAB.ER.PRT PO ONE (07:30)
[2018-03-18 07:52] VITALS: BP 131/73
[2018-03-18] MEDS ORDERED: CEFTRIAXONE 1,000 MG IV SCH (09:00)
[2018-03-18] MEDS: SENNA/DOCUSATE TABLET PO SCH (09:00)
[2018-03-18] MEDS: FUROSEMIDE 40 MG/4 ML IV SCH (09:33)
[2018-03-18] MEDS: DOXYCYCLINE 100MG CAP PO SCH (09:33)
[2018-03-18] MEDS: TAMSULOSIN 0.4 MG CAP.ER.24H PO SCH (09:34)
[2018-03-18] MEDS: ARIPIPRAZOLE 5 MG TABLET PO SCH (09:34)
[2018-03-18] MEDS: OXAZEPAM 10 MG CAPSULE PO SCH (09:34)
[2018-03-18] MEDS: FAMOTIDINE 20 MG TABLET PO SCH (09:35)
[2018-03-18] MEDS: SODIUM CHLORIDE FLUSH 10ML SYR IVF SCH (09:35)
[2018-03-18] MEDS: METHYLPHENIDATE 10 MG TABLET PO SCH ×2 (09:35→12:00)
[2018-03-18] MEDS: CEFTRIAXONE PMX 1GM/50ML 50 ML IV SCH (10:06)
[2018-03-18] MEDS ORDERED: CEPH-368 PO (11:46)
[2018-03-18] MEDS ORDERED: ACET325T14 PO (11:46)
[2018-03-18] MEDS ORDERED: DOXY100C2 PO (11:46)
[2018-03-18] MEDS ORDERED: FURO-93 PO (11:46)
[2018-03-18 13:36] VITALS: BP 125/70
== END 2018-03-18 16:00 | disposition home health service (06) | DRG 602 ==
LOC: ED 10:59 → SUATTDRO 14:20 → EDIP 14:24 → 3NE 14:49
PROVIDERS: ADMIT Family Medicine; ATTEND Family Medicine
DX: L03.115 Cellulitis of right lower limb (principal); E43 Unspecified severe protein-calorie malnutrition; D68.69 Other thrombophilia; Z99.11 Dependence on respirator [ventilator] status; L03.116 Cellulitis of left lower limb; F32.9 Major depressive disorder, single episode, unspecified; F41.9 Anxiety disorder, unspecified; F90.9 Attention-deficit hyperactivity disorder, unspecified type; G25.0 Essential tremor; I48.0 Paroxysmal atrial fibrillation; Z79.2 Long term (current) use of antibiotics; Z86.14 Personal history of Methicillin resistant Staphylococcus aureus infection; Z87.891 Personal history of nicotine dependence; Z96.643 Presence of artificial hip joint, bilateral; D63.8 Anemia in other chronic diseases classified elsewhere; G89.29 Other chronic pain; M54.12 Radiculopathy, cervical region; E03.9 Hypothyroidism, unspecified; E87.6 Hypokalemia; F42.9 Obsessive-compulsive disorder, unspecified; I87.2 Venous insufficiency (chronic) (peripheral); I87.8 Other specified disorders of veins; N40.0 Benign prostatic hyperplasia without lower urinary tract symptoms; Z86.718 Personal history of other venous thrombosis and embolism; Z87.440 Personal history of urinary (tract) infections; Z79.82 Long term (current) use of aspirin; Z79.899 Other long term (current) drug therapy; Z23 Encounter for immunization; Z91.041 Radiographic dye allergy status; Z88.8 Allergy status to other drugs, medicaments and biological substances; Z91.048 Other nonmedicinal substance allergy status; Z68.32 Body mass index [BMI] 32.0-32.9, adult
CPT/HCPCS: 36415; 71045; 80048; 81001; 82040; 83735; 83880; 85025; 85610; 85730; 87086; 90656; 93005; 93922; 93970; 97161; 99285; G0378; J0696; J1335; J1650; J1940; J3370; 29580-50; J7040

== ENCOUNTER 2018-05-08 15:30 | Inpatient (IN) | payer MEDICARE, BC ==
[~2018-05-08] VITALS: Ht 180.3 cm; Wt 102.9 kg
[~2018-05-08 15:30] MED LIST changes: +ACET325T14 PO; -ASPI-621 PO; +ASPI81TA45 PO; +CEPH-368 PO; +FURO-93 PO; -SENN-87 PO; +SENN-88 PO; +WARF2.5T32 PO; -WARF2.5T73 PO
[2018-05-08] MEDS ORDERED: LORazepam 2 MG/ML, 1ML ONE (16:22)
[2018-05-08] MEDS ORDERED: SODIUM CHLORIDE FLUSH 10ML SYR IVF ONE (16:30)
[2018-05-08] MEDS ORDERED: LORazepam 2 MG/ML, 1ML IVPush ONE (16:30)
[2018-05-08 16:34] LABS: BASOPHILS # (AUTO) 0.02 x10^3/uL (0-0.1); BASOPHILS % (AUTO) 0 % (0-1); EOSINOPHILS # (AUTO) 0.12 x10^3/uL (0-0.4); EOSINOPHILS % (AUTO) 2 % (1-7); LYMPHOCYTES % (AUTO) 14 % (22-44); MD NO; MEAN CORPUSCULAR HEMOGLOBIN 27.3 pg (27.5-34.5); MEAN CORPUSCULAR HGB CONC 32.8 g/dL (33.2-36.2); MEAN CORPUSCULAR VOLUME 83.2 fL (81-97); MEAN PLATELET VOLUME 7.2 fL (7.4-10.4); MONOCYTES # (AUTO) 0.57 x10^3/uL (0.2-0.8); MONOCYTES % (AUTO) 8 % (2-9); NEUTROPHILS # (AUTO) 5.32 x10^3/uL (1.8-6.8); NEUTROPHILS % (AUTO) 76 % (42-75); PLATELET COUNT 285 x10^3/uL (130-400); RED BLOOD COUNT 4.87 x10^6/uL (4.38-5.82); RED CELL DISTRIBUTION WIDTH 16.7 % (9.4-14.8)
[2018-05-08 16:45] LABS: ALANINE AMINOTRANSFERASE 15 U/L (12-78); ALBUMIN 3.3 g/dL (3.4-5.0); ANION GAP 13 mmol/L (5-15); CALCIUM 8.6 mg/dL (8.5-10.1); CHLORIDE 100 mmol/L (98-107); CREATININE 1.07 mg/dL (0.7-1.3)
[2018-05-08 16:50] LABS: ALKALINE PHOSPHATASE 113 U/L (45-117); BILIRUBIN,TOTAL 0.8 mg/dL (0.2-1.0); SALICYLATE LEVEL 4.3 mg/dL (2.8-20.0); TOTAL PROTEIN 7.6 g/dL (6.4-8.2); TROPONIN I < 0.015 ng/mL (0.000-0.045)
[2018-05-08 16:53] LABS: ACETAMINOPHEN < 2 mcg/mL (10-30)
[2018-05-08 18:55] LABS: MICROSCOPIC NOT IND
[2018-05-08 18:57] LABS: CULTURE INDICATED? NO
[2018-05-08] MEDS ORDERED: SODIUM CHLORIDE 0.9% 1,000 ML IV SCH (21:51)
[2018-05-08] MEDS ORDERED: ONDANSETRON ODT 4 MG PO PRN (22:00)
[2018-05-08] MEDS ORDERED: morphine SULFATE 10 MG/ML, 1ML IVPush PRN (22:00)
[2018-05-08] MEDS ORDERED: hydrALAzine 20 MG/ML, 1ML IVPush PRN (22:00)
[2018-05-08] MEDS ORDERED: POLYETHYLENE GLYCOL 17 GM PACKET PO PRN (22:00)
[2018-05-08] MEDS ORDERED: ONDANSETRON 2MG/ML, 2ML IVPush PRN (22:00)
[2018-05-08] MEDS ORDERED: ACETAMINOPHEN 325 MG TABLET PO PRN (22:00)
[2018-05-09 02:00] VITALS: BP 149/72
[2018-05-09] MEDS: CEFTRIAXONE PMX 1GM/50ML 50 ML IV SCH ×2 (03:02→15:22)
[2018-05-09] MEDS: FLUVOXAMINE 50MG TABLET PO SCH ×2 (03:03→19:44)
[2018-05-09] MEDS: ENOXAPARIN 40 MG/0.4 ML SQ SCH ×2 (03:03→21:51)
[2018-05-09 05:20] LABS: ANION GAP 11 mmol/L (5-15); CALCIUM 8.3 mg/dL (8.5-10.1); CHLORIDE 95 mmol/L (98-107)
[2018-05-09 05:21] LABS: CREATININE 1.07 mg/dL (0.7-1.3)
[2018-05-09 05:22] LABS: BASOPHILS # (AUTO) 0.04 x10^3/uL (0-0.1); BASOPHILS % (AUTO) 0 % (0-1); EOSINOPHILS # (AUTO) 0.09 x10^3/uL (0-0.4); EOSINOPHILS % (AUTO) 1 % (1-7); LYMPHOCYTES # (AUTO) 1.22 x10^3/uL (1-3.4); LYMPHOCYTES % (AUTO) 14 % (22-44); MD NO; MEAN CORPUSCULAR HEMOGLOBIN 27.4 pg (27.5-34.5); MEAN CORPUSCULAR HGB CONC 33.3 g/dL (33.2-36.2); MEAN CORPUSCULAR VOLUME 82.5 fL (81-97); MEAN PLATELET VOLUME 7.6 fL (7.4-10.4); MONOCYTES # (AUTO) 0.88 x10^3/uL (0.2-0.8); MONOCYTES % (AUTO) 10 % (2-9); NEUTROPHILS # (AUTO) 6.83 x10^3/uL (1.8-6.8); NEUTROPHILS % (AUTO) 75 % (42-75); PLATELET COUNT 282 x10^3/uL (130-400); RED BLOOD COUNT 4.77 x10^6/uL (4.38-5.82); RED CELL DISTRIBUTION WIDTH 16.9 % (9.4-14.8)
[2018-05-09 07:09] VITALS: BP 188/89
[2018-05-09] MEDS: OXAZEPAM 10 MG CAPSULE PO SCH ×2 (09:00→19:44)
[2018-05-09] MEDS: METHYLPHENIDATE 10 MG TABLET PO SCH ×2 (09:00→19:44)
[2018-05-09] MEDS ORDERED: MAGNESIUM SULFATE PMX 2GM/50ML 50 ML IV ONE (09:00)
[2018-05-09] MEDS ORDERED: hydrALAzine 20 MG/ML, 1ML IV PRN (09:00)
[2018-05-09] MEDS: TAMSULOSIN 0.4 MG CAP.ER.24H PO SCH (10:09)
[2018-05-09] MEDS: ARIPIPRAZOLE 5 MG TABLET PO SCH (10:09)
[2018-05-09] MEDS: AMPICILLIN/SULBACTAM 1,500 MG in SODIUM CHLORIDE 0.9% 50 ML IV SCH ×3 (10:39→19:48)
[2018-05-09 12:51] VITALS: BP 169/77
[2018-05-09 15:23] VITALS: BP 159/91
[2018-05-09] MEDS: LORazepam 2 MG/ML, 1ML IVPush PRN ×2 (17:56→21:51)
[2018-05-09] MEDS: SODIUM CHLORIDE 0.9% 1,000 ML IV SCH (17:57)
[2018-05-09] MEDS: VERAPAMIL ER 180MG TABLET.ER PO SCH (19:44)
[2018-05-09] MEDS ORDERED: SODIUM CHLORIDE 0.9% 1,000 ML IV SCH (21:51)
[2018-05-10] MEDS: SODIUM CHLORIDE 0.9% 1,000 ML IV SCH ×2 (00:38→09:56)
[2018-05-10 01:51] VITALS: BP 134/79
[2018-05-10] MEDS: LORazepam 2 MG/ML, 1ML IVPush PRN ×3 (02:59→15:44)
[2018-05-10] MEDS: AMPICILLIN/SULBACTAM 1,500 MG in SODIUM CHLORIDE 0.9% 50 ML IV SCH ×4 (03:15→19:55)
[2018-05-10] MEDS: CEFTRIAXONE PMX 1GM/50ML 50 ML IV SCH (04:01)
[2018-05-10 04:50] LABS: BASOPHILS # (AUTO) 0.04 x10^3/uL (0-0.1); BASOPHILS % (AUTO) 1 % (0-1); EOSINOPHILS # (AUTO) 0.07 x10^3/uL (0-0.4); EOSINOPHILS % (AUTO) 1 % (1-7); LYMPHOCYTES # (AUTO) 1.14 x10^3/uL (1-3.4); LYMPHOCYTES % (AUTO) 13 % (22-44); MD NO; MEAN CORPUSCULAR HEMOGLOBIN 27.6 pg (27.5-34.5); MEAN CORPUSCULAR HGB CONC 33.6 g/dL (33.2-36.2); MEAN CORPUSCULAR VOLUME 82.2 fL (81-97); MEAN PLATELET VOLUME 7.6 fL (7.4-10.4); MONOCYTES # (AUTO) 1.07 x10^3/uL (0.2-0.8); MONOCYTES % (AUTO) 12 % (2-9); NEUTROPHILS % (AUTO) 74 % (42-75); PLATELET COUNT 265 x10^3/uL (130-400); RED CELL DISTRIBUTION WIDTH 16.9 % (9.4-14.8)
[2018-05-10 04:58] LABS: ANION GAP 9 mmol/L (5-15); CALCIUM 7.6 mg/dL (8.5-10.1); CHLORIDE 96 mmol/L (98-107)
[2018-05-10 05:09] LABS: ALANINE AMINOTRANSFERASE 15 U/L (12-78); ALKALINE PHOSPHATASE 92 U/L (45-117); BILIRUBIN,TOTAL 0.8 mg/dL (0.2-1.0); CREATININE 0.95 mg/dL (0.7-1.3); TOTAL PROTEIN 6.6 g/dL (6.4-8.2)
[2018-05-10 07:20] VITALS: BP 160/82
[2018-05-10] MEDS: METHYLPHENIDATE 10 MG TABLET PO SCH ×2 (09:00→19:54)
[2018-05-10] MEDS: TAMSULOSIN 0.4 MG CAP.ER.24H PO SCH (09:50)
[2018-05-10] MEDS: ARIPIPRAZOLE 5 MG TABLET PO SCH (09:50)
[2018-05-10] MEDS: OXAZEPAM 10 MG CAPSULE PO SCH ×2 (09:50→19:55)
[2018-05-10 12:08] VITALS: BP 146/77
[2018-05-10 16:06] LABS: ANION GAP 10 mmol/L (5-15); CALCIUM 7.7 mg/dL (8.5-10.1); CHLORIDE 96 mmol/L (98-107); CREATININE 1.02 mg/dL (0.7-1.3)
[2018-05-10 19:31] VITALS: BP 148/75
[2018-05-10] MEDS: VERAPAMIL ER 180MG TABLET.ER PO SCH (19:54)
[2018-05-10] MEDS: ENOXAPARIN 40 MG/0.4 ML SQ SCH (19:55)
[2018-05-10 20:33] LABS: CULTURE INDICATED? NO; MICROSCOPIC NOT IND
[2018-05-10 20:50] LABS: SODIUM,URINE RANDOM 80 mmol/L
[2018-05-10 20:58] LABS: OSMOLALITY,URINE 653 mOsm/kg (500-850)
[2018-05-10 22:27] LABS: ANION GAP 9 mmol/L (5-15); CALCIUM 7.6 mg/dL (8.5-10.1); CHLORIDE 97 mmol/L (98-107); CREATININE 0.93 mg/dL (0.7-1.3)
[2018-05-11] MEDS: AMPICILLIN/SULBACTAM 1,500 MG in SODIUM CHLORIDE 0.9% 50 ML IV SCH ×4 (02:54→20:53)
[2018-05-11 03:37] VITALS: BP 116/69
[2018-05-11 04:39] LABS: BASOPHILS # (AUTO) 0.05 x10^3/uL (0-0.1); BASOPHILS % (AUTO) 1 % (0-1); EOSINOPHILS # (AUTO) 0.16 x10^3/uL (0-0.4); EOSINOPHILS % (AUTO) 2 % (1-7); LYMPHOCYTES # (AUTO) 1.37 x10^3/uL (1-3.4); LYMPHOCYTES % (AUTO) 18 % (22-44); MD NO; MEAN CORPUSCULAR HEMOGLOBIN 27.7 pg (27.5-34.5); MEAN CORPUSCULAR HGB CONC 33.6 g/dL (33.2-36.2); MEAN CORPUSCULAR VOLUME 82.5 fL (81-97); MEAN PLATELET VOLUME 7.2 fL (7.4-10.4); MONOCYTES # (AUTO) 1.23 x10^3/uL (0.2-0.8); MONOCYTES % (AUTO) 17 % (2-9); NEUTROPHILS # (AUTO) 4.63 x10^3/uL (1.8-6.8); NEUTROPHILS % (AUTO) 62 % (42-75); PLATELET COUNT 234 x10^3/uL (130-400); RED BLOOD COUNT 4.19 x10^6/uL (4.38-5.82); RED CELL DISTRIBUTION WIDTH 16.9 % (9.4-14.8)
[2018-05-11 04:51] LABS: ANION GAP 8 mmol/L (5-15); CALCIUM 8.1 mg/dL (8.5-10.1); CHLORIDE 100 mmol/L (98-107); CREATININE 0.94 mg/dL (0.7-1.3)
[2018-05-11] MEDS: METHYLPHENIDATE 10 MG TABLET PO SCH ×2 (09:00→20:55)
[2018-05-11] MEDS: TAMSULOSIN 0.4 MG CAP.ER.24H PO SCH (10:02)
[2018-05-11] MEDS: ARIPIPRAZOLE 5 MG TABLET PO SCH (10:02)
[2018-05-11 13:20] VITALS: BP 120/76
[2018-05-11 15:32] LABS: ANION GAP 9 mmol/L (5-15); CALCIUM 7.7 mg/dL (8.5-10.1); CHLORIDE 100 mmol/L (98-107)
[2018-05-11] MEDS ORDERED: LORazepam 1MG TABLET PO PRN (18:30)
[2018-05-11 19:18] VITALS: BP 126/82
[2018-05-11] MEDS: VERAPAMIL ER 180MG TABLET.ER PO SCH (20:54)
[2018-05-11] MEDS: ENOXAPARIN 40 MG/0.4 ML SQ SCH (20:54)
[2018-05-11] MEDS: OXAZEPAM 10 MG CAPSULE PO SCH (20:54)
[2018-05-12 02:12] VITALS: BP 118/72
[2018-05-12] MEDS: AMPICILLIN/SULBACTAM 1,500 MG in SODIUM CHLORIDE 0.9% 50 ML IV SCH ×4 (02:12→21:05)
[2018-05-12 04:35] LABS: ANION GAP 11 mmol/L (5-15); CALCIUM 7.8 mg/dL (8.5-10.1); CHLORIDE 102 mmol/L (98-107); CREATININE 0.95 mg/dL (0.7-1.3)
[2018-05-12 07:16] VITALS: BP 109/70
[2018-05-12] MEDS: TAMSULOSIN 0.4 MG CAP.ER.24H PO SCH (08:28)
[2018-05-12] MEDS: ARIPIPRAZOLE 5 MG TABLET PO SCH (08:28)
[2018-05-12] MEDS: METHYLPHENIDATE 10 MG TABLET PO SCH ×2 (09:00→21:00)
[2018-05-12 11:56] LABS: ANION GAP 6 mmol/L (5-15); CALCIUM 7.9 mg/dL (8.5-10.1); CHLORIDE 103 mmol/L (98-107); CREATININE 0.81 mg/dL (0.7-1.3)
[2018-05-12 14:20] VITALS: BP 109/71
[2018-05-12] MEDS ORDERED: POTASSIUM CHLORIDE 20 MEQ TAB.ER.PRT PO ONE (15:00)
[2018-05-12 19:12] VITALS: BP 112/76
[2018-05-12] MEDS: VERAPAMIL ER 180MG TABLET.ER PO SCH (20:59)
[2018-05-12] MEDS: ENOXAPARIN 40 MG/0.4 ML SQ SCH (21:05)
[2018-05-12] MEDS: TRAZODONE 100MG TABLET PO SCH (21:05)
[2018-05-13] MEDS: OXAZEPAM 10 MG CAPSULE PO PRN ×2 (00:02→23:15)
[2018-05-13 01:26] VITALS: BP 116/80
[2018-05-13] MEDS: AMPICILLIN/SULBACTAM 1,500 MG in SODIUM CHLORIDE 0.9% 50 ML IV SCH ×2 (03:17→10:02)
[2018-05-13 05:07] LABS: CHLORIDE 106 mmol/L (98-107)
[2018-05-13 05:14] LABS: ANION GAP 7 mmol/L (5-15); CALCIUM 8.2 mg/dL (8.5-10.1); CREATININE 0.92 mg/dL (0.7-1.3)
[2018-05-13 07:31] VITALS: BP 97/60
[2018-05-13] MEDS ORDERED: OXYcodone IR 5MG TABLET PO PRN (10:00)
[2018-05-13] MEDS: TAMSULOSIN 0.4 MG CAP.ER.24H PO SCH (10:02)
[2018-05-13] MEDS: METHYLPHENIDATE 10 MG TABLET PO SCH ×2 (10:02→20:22)
[2018-05-13] MEDS: ARIPIPRAZOLE 5 MG TABLET PO SCH (10:02)
[2018-05-13] MEDS: ACETAMINOPHEN 325 MG TABLET PO PRN (14:19)
[2018-05-13] MEDS: POTASSIUM CHLORIDE 20 MEQ TAB.ER.PRT PO SCH (15:29)
[2018-05-13] MEDS ORDERED: POTASSIUM CHLORIDE 20 MEQ PACKET PO SCH (15:30)
[2018-05-13] MEDS ORDERED: OXAZ10CA26 PO (15:31)
[2018-05-13] MEDS ORDERED: POTA20TA6 PO (15:31)
[2018-05-13] MEDS ORDERED: METH-438 PO (15:31)
[2018-05-13] MEDS ORDERED: OXYC5TAB3 PO (15:31)
[2018-05-13] MEDS ORDERED: AMOX1TAB12 PO (15:31)
[2018-05-13] MEDS ORDERED: TRAZ-137 PO (15:31)
[2018-05-13 15:50] VITALS: BP 107/65
[2018-05-13 19:07] VITALS: BP 115/71
[2018-05-13] MEDS: AMOXICILLIN/CLAV 875-125MG TABLET PO SCH (20:21)
[2018-05-13] MEDS: ENOXAPARIN 40 MG/0.4 ML SQ SCH (20:22)
[2018-05-13] MEDS: VERAPAMIL ER 180MG TABLET.ER PO SCH (20:22)
[2018-05-13] MEDS: TRAZODONE 100MG TABLET PO SCH (20:24)
[2018-05-14 01:50] VITALS: BP 123/64
[2018-05-14 09:28] VITALS: BP 127/75
[2018-05-14] MEDS: POTASSIUM CHLORIDE 20 MEQ TAB.ER.PRT PO SCH (09:49)
[2018-05-14] MEDS: AMOXICILLIN/CLAV 875-125MG TABLET PO SCH (09:50)
[2018-05-14] MEDS: ARIPIPRAZOLE 5 MG TABLET PO SCH (09:50)
[2018-05-14] MEDS: TAMSULOSIN 0.4 MG CAP.ER.24H PO SCH (09:51)
[2018-05-14] MEDS: ACETAMINOPHEN 325 MG TABLET PO PRN (09:52)
[2018-05-14] MEDS ORDERED: GABAPENTIN 100 MG CAPSULE PO SCH (11:30)
[2018-05-14] MEDS ORDERED: GABA-826 PO (11:35)
[2018-05-14] MEDS: METHYLPHENIDATE 10 MG TABLET PO SCH (13:49)
== END 2018-05-14 14:05 | DRG 871 ==
LOC: ED 18:49 → SUATTDRO 21:50 → EDIP 23:13 → 3NW 23:24
PROVIDERS: ADMIT Hospitalist; ATTEND Hospitalist
DX: A41.9 Sepsis, unspecified organism (principal); G92 Toxic encephalopathy; L03.115 Cellulitis of right lower limb; E22.2 Syndrome of inappropriate secretion of antidiuretic hormone; E87.0 Hyperosmolality and hypernatremia; L03.116 Cellulitis of left lower limb; N40.0 Benign prostatic hyperplasia without lower urinary tract symptoms; I87.2 Venous insufficiency (chronic) (peripheral); E03.9 Hypothyroidism, unspecified; Z96.643 Presence of artificial hip joint, bilateral; I48.0 Paroxysmal atrial fibrillation; F90.9 Attention-deficit hyperactivity disorder, unspecified type; F42.9 Obsessive-compulsive disorder, unspecified; E86.0 Dehydration; R62.7 Adult failure to thrive; E66.9 Obesity, unspecified; I45.10 Unspecified right bundle-branch block; G89.29 Other chronic pain; E87.6 Hypokalemia; D63.8 Anemia in other chronic diseases classified elsewhere; Z86.718 Personal history of other venous thrombosis and embolism; Z87.440 Personal history of urinary (tract) infections; Z86.14 Personal history of Methicillin resistant Staphylococcus aureus infection; Z79.899 Other long term (current) drug therapy; Z91.041 Radiographic dye allergy status; Z88.8 Allergy status to other drugs, medicaments and biological substances; Z91.048 Other nonmedicinal substance allergy status; Z68.31 Body mass index [BMI] 31.0-31.9, adult
CPT/HCPCS: 36415; 71045; 80048; 80053; 80307; 80329; 81003; 83735; 83930; 83935; 84100; 84300; 84443; 84484; 85025; 87040; 93005; 96361; 96374; G0378; J0696; J1650; G0480; J0295; J2060; J2270; J3475; J7030

== ENCOUNTER 2018-05-20 13:26 | Inpatient (IN) | payer MEDICARE, BC ==
[~2018-05-20] VITALS: Ht 180.3 cm; Wt 100.0 kg
[~2018-05-20 13:26] MED LIST changes: +AMOX1TAB12 PO; +GABA-826 PO; +POTA20TA6 PO
[2018-05-20] MEDS ORDERED: PLEASE ENTER HEIGHT AND WEIGHT MC SCH (14:00)
[2018-05-20] MEDS ORDERED: SODIUM CHLORIDE FLUSH 10ML SYR IVF ONE (14:00)
[2018-05-20 14:12] LABS: BASOPHILS # (AUTO) 0.04 x10^3/uL (0-0.1); BASOPHILS % (AUTO) 0 % (0-1); EOSINOPHILS # (AUTO) 0.14 x10^3/uL (0-0.4); EOSINOPHILS % (AUTO) 1 % (1-7); LYMPHOCYTES # (AUTO) 1.05 x10^3/uL (1-3.4); LYMPHOCYTES % (AUTO) 10 % (22-44); MD NO; MEAN CORPUSCULAR HEMOGLOBIN 27.3 pg (27.5-34.5); MEAN CORPUSCULAR HGB CONC 32.4 g/dL (33.2-36.2); MEAN CORPUSCULAR VOLUME 84.2 fL (81-97); MEAN PLATELET VOLUME 7.8 fL (7.4-10.4); MONOCYTES # (AUTO) 0.84 x10^3/uL (0.2-0.8); MONOCYTES % (AUTO) 8 % (2-9); NEUTROPHILS # (AUTO) 8.87 x10^3/uL (1.8-6.8); NEUTROPHILS % (AUTO) 81 % (42-75); PLATELET COUNT 211 x10^3/uL (130-400); RED BLOOD COUNT 4.91 x10^6/uL (4.38-5.82); RED CELL DISTRIBUTION WIDTH 17.8 % (9.4-14.8)
[2018-05-20 14:21] LABS: ALANINE AMINOTRANSFERASE 17 U/L (12-78); ALBUMIN 3.3 g/dL (3.4-5.0); ANION GAP 11 mmol/L (5-15); CALCIUM 8.4 mg/dL (8.5-10.1); CHLORIDE 107 mmol/L (98-107); CREATININE 1.16 mg/dL (0.7-1.3)
[2018-05-20 14:25] LABS: ALKALINE PHOSPHATASE 87 U/L (45-117); BILIRUBIN,TOTAL 0.6 mg/dL (0.2-1.0); TOTAL PROTEIN 7.3 g/dL (6.4-8.2)
[2018-05-20 14:26] LABS: TROPONIN I 0.414 ng/mL (0.000-0.045)
[2018-05-20 15:12] LABS: FREE T4 (FREE THYROXINE) 1.5 ng/dL (0.76-1.46); THYROID STIMULATING HORMONE 1.68 mIU/L (0.358-3.740)
[2018-05-20 15:22] LABS: D-DIMER 24.94 ug/mlFEU (0.00-0.52); INTERNATIONAL NORMALIZED RATIO 1.28 (0.93-1.1); PROTHROMBIN TIME 13.4 Seconds (9.6-11.5)
[2018-05-20] MEDS ORDERED: POLYETHYLENE GLYCOL 17 GM PACKET PO PRN (15:30)
[2018-05-20] MEDS ORDERED: ONDANSETRON 2MG/ML, 2ML IVPush PRN (15:30)
[2018-05-20] MEDS ORDERED: ONDANSETRON ODT 4 MG PO PRN (15:30)
[2018-05-20] MEDS ORDERED: LABETALOL 5MG/ML, 20ML IVPush PRN (15:30)
[2018-05-20] MEDS ORDERED: TEMPLATE NON-FORMULARY MED. (Gabapentin 100 MG) PO SCH (16:00)
[2018-05-20] MEDS ORDERED: OXAZEPAM 10 MG PO PRN (16:30)
[2018-05-20 16:43] LABS: TROPONIN I 0.621 ng/mL (0.000-0.045)
[2018-05-20] MEDS ORDERED: OMNIPAQUE 350 MG/ML, 100ML BOTTLE ONE (16:52)
[2018-05-20 16:59] VITALS: BP 99/66
[2018-05-20] MEDS ORDERED: HEPARIN 25,000 UNITS/500ML PMX 500 ML IV PRN ×3 (17:00→21:00)
[2018-05-20] MEDS ORDERED: HEPARIN 5,000 UNITS/ML, 1ML ONE (17:04)
[2018-05-20] MEDS ORDERED: HEPARIN 25,000 UNITS/500ML PMX 500 ML ONE (17:04)
[2018-05-20] MEDS ORDERED: HEPARIN 5,000 UNITS/ML, 1ML IV PRN (18:00)
[2018-05-20] MEDS ORDERED: ALTEPLASE IV ONE (19:00)
[2018-05-20] MEDS: OXYcodone IR 5MG TABLET PO PRN (19:12)
[2018-05-20 19:52] LABS: MICROSCOPIC NOT IND
[2018-05-20 19:56] LABS: CULTURE INDICATED? NO
[2018-05-20] MEDS: VERAPAMIL ER 180MG TABLET.ER PO SCH (21:00)
[2018-05-20] MEDS ORDERED: HEPARIN PROTOCOL IIB/IIIA POST-LYTIC MC PRN ×2 (21:00)
[2018-05-20] MEDS ORDERED: HEPARIN 5,000 UNITS/ML, 1ML IV ONE (21:00)
[2018-05-20 21:36] LABS: TROPONIN I 0.551 ng/mL (0.000-0.045)
[2018-05-20] MEDS: ARIPIPRAZOLE 5 MG TABLET PO SCH (23:16)
[2018-05-20] MEDS: GABAPENTIN 100 MG CAPSULE PO SCH (23:16)
[2018-05-21] MEDS: METHYLPHENIDATE 10 MG TABLET PO SCH ×3 (00:47→20:57)
[2018-05-21 01:17] VITALS: BP 106/66
[2018-05-21 04:00] VITALS: BP 119/70
[2018-05-21] MEDS: GABAPENTIN 100 MG CAPSULE PO SCH ×4 (06:07→20:21)
[2018-05-21 06:11] LABS: BASOPHILS # (AUTO) 0.05 x10^3/uL (0-0.1); BASOPHILS % (AUTO) 1 % (0-1); EOSINOPHILS # (AUTO) 0.12 x10^3/uL (0-0.4); EOSINOPHILS % (AUTO) 2 % (1-7); LYMPHOCYTES # (AUTO) 1.75 x10^3/uL (1-3.4); LYMPHOCYTES % (AUTO) 22 % (22-44); MD NO; MEAN CORPUSCULAR HEMOGLOBIN 27.7 pg (27.5-34.5); MEAN PLATELET VOLUME 8.3 fL (7.4-10.4); MONOCYTES # (AUTO) 0.95 x10^3/uL (0.2-0.8); MONOCYTES % (AUTO) 12 % (2-9); NEUTROPHILS # (AUTO) 5.12 x10^3/uL (1.8-6.8); NEUTROPHILS % (AUTO) 64 % (42-75); PLATELET COUNT 201 x10^3/uL (130-400); RED BLOOD COUNT 4.69 x10^6/uL (4.38-5.82)
[2018-05-21] MEDS: PANTOPROZOLE 40MG TABLET PO SCH (07:30)
[2018-05-21] MEDS: OXYcodone IR 5MG TABLET PO PRN ×2 (07:45→20:27)
[2018-05-21 08:22] LABS: ALANINE AMINOTRANSFERASE 15 U/L (12-78); ANION GAP 10 mmol/L (5-15); CALCIUM 8.5 mg/dL (8.5-10.1); CHLORIDE 108 mmol/L (98-107)
[2018-05-21 08:27] LABS: ALKALINE PHOSPHATASE 83 U/L (45-117); BILIRUBIN,TOTAL 0.6 mg/dL (0.2-1.0); TOTAL PROTEIN 6.8 g/dL (6.4-8.2)
[2018-05-21 08:33] LABS: THYROID STIMULATING HORMONE 0.993 mIU/L (0.358-3.740)
[2018-05-21] MEDS: SENNA/DOCUSATE TABLET PO SCH (09:00)
[2018-05-21] MEDS: ARIPIPRAZOLE 5 MG TABLET PO SCH ×2 (09:00→20:21)
[2018-05-21] MEDS: TAMSULOSIN 0.4 MG CAP.ER.24H PO SCH (09:00)
[2018-05-21] MEDS ORDERED: NALOXONE 1 MG/ML, 2ML ONE (10:30)
[2018-05-21] MEDS ORDERED: FENTANYL PF 100 MCG/2ML ONE (10:30)
[2018-05-21] MEDS ORDERED: FLUMAZENIL 0.1 MG/1 ML, 5ML ONE (10:30)
[2018-05-21] MEDS ORDERED: MIDAZOLAM 1 MG/ML, 5ML ONE (10:30)
[2018-05-21] MEDS ORDERED: LIDOCAINE-MPF 1%, 5ML ONE (10:31)
[2018-05-21] MEDS ORDERED: VISIPAQUE 270 MG/ML, 50ML BOTTLE ONE (11:37)
[2018-05-21] MEDS ORDERED: HEPARIN 5,000 UNITS/ML, 1ML IV ONE (12:00)
[2018-05-21] MEDS ORDERED: HEPARIN 5,000 UNITS/ML, 1ML IV PRN (12:00)
[2018-05-21] MEDS ORDERED: HEPARIN 25,000 UNITS/500ML PMX 500 ML IV PRN (12:00)
[2018-05-21] MEDS: ALBUTEROL SULFATE 2.5 MG/3 ML NPPB PRN (15:50)
[2018-05-21] MEDS: VERAPAMIL ER 180MG TABLET.ER PO SCH (20:21)
[2018-05-22 04:00] VITALS: BP 126/66
[2018-05-22] MEDS: GABAPENTIN 100 MG CAPSULE PO SCH ×4 (05:13→21:56)
[2018-05-22] MEDS: OXYcodone IR 5MG TABLET PO PRN (05:13)
[2018-05-22] MEDS: TAMSULOSIN 0.4 MG CAP.ER.24H PO SCH (07:34)
[2018-05-22] MEDS: METHYLPHENIDATE 10 MG TABLET PO SCH ×2 (07:34→21:56)
[2018-05-22] MEDS: ARIPIPRAZOLE 5 MG TABLET PO SCH ×2 (07:34→21:56)
[2018-05-22] MEDS: PANTOPROZOLE 40MG TABLET PO SCH (07:34)
[2018-05-22] MEDS: SENNA/DOCUSATE TABLET PO SCH (07:34)
[2018-05-22] MEDS: RIVAROXABAN 15 MG TABLET PO SCH ×2 (10:51→18:07)
[2018-05-22] MEDS: CLOTRIMAZOLE CRM 1%, 15GM TP SCH ×2 (10:51→21:56)
[2018-05-22 13:20] VITALS: BP 137/81
[2018-05-22 21:23] VITALS: BP 122/73
[2018-05-22] MEDS: VERAPAMIL ER 180MG TABLET.ER PO SCH (21:56)
[2018-05-22] MEDS: OXAZEPAM 10 MG CAPSULE PO PRN (22:10)
[2018-05-23 02:38] VITALS: BP 117/72
[2018-05-23] MEDS: GABAPENTIN 100 MG CAPSULE PO SCH ×4 (05:55→20:14)
[2018-05-23] MEDS: OXAZEPAM 10 MG CAPSULE PO PRN (05:55)
[2018-05-23 07:20] VITALS: BP 122/76
[2018-05-23] MEDS: ALBUTEROL SULFATE 2.5 MG/3 ML NPPB PRN (07:35)
[2018-05-23] MEDS: ARIPIPRAZOLE 5 MG TABLET PO SCH ×2 (09:15→20:14)
[2018-05-23] MEDS: TAMSULOSIN 0.4 MG CAP.ER.24H PO SCH (09:15)
[2018-05-23] MEDS: METHYLPHENIDATE 10 MG TABLET PO SCH ×2 (09:15→20:14)
[2018-05-23] MEDS: RIVAROXABAN 15 MG TABLET PO SCH ×2 (09:16→17:52)
[2018-05-23] MEDS: CLOTRIMAZOLE CRM 1%, 15GM TP SCH ×2 (09:16→20:13)
[2018-05-23] MEDS: SENNA/DOCUSATE TABLET PO SCH (09:16)
[2018-05-23 13:34] VITALS: BP 126/79
[2018-05-23] MEDS: OXYcodone IR 5MG TABLET PO PRN (14:17)
[2018-05-23 19:08] VITALS: BP 118/67
[2018-05-23] MEDS: DIPHENHYDRAMINE/ZINC CRM 2%, 30GM TP PRN (20:13)
[2018-05-23] MEDS: VERAPAMIL ER 180MG TABLET.ER PO SCH (20:14)
[2018-05-24 02:04] VITALS: BP 116/69
[2018-05-24] MEDS: GABAPENTIN 100 MG CAPSULE PO SCH ×4 (05:59→20:52)
[2018-05-24 07:00] VITALS: BP 124/70
[2018-05-24] MEDS: RIVAROXABAN 15 MG TABLET PO SCH ×2 (08:36→17:33)
[2018-05-24] MEDS: TAMSULOSIN 0.4 MG CAP.ER.24H PO SCH (08:36)
[2018-05-24] MEDS: METHYLPHENIDATE 10 MG TABLET PO SCH ×2 (08:37→20:42)
[2018-05-24] MEDS: SENNA/DOCUSATE TABLET PO SCH (08:37)
[2018-05-24] MEDS: ARIPIPRAZOLE 5 MG TABLET PO SCH ×2 (08:37→20:44)
[2018-05-24] MEDS: CLOTRIMAZOLE CRM 1%, 15GM TP SCH ×2 (08:37→20:52)
[2018-05-24] MEDS ORDERED: FLUVOXAMINE 100MG TABLET PO SCH (11:30)
[2018-05-24] MEDS: FLUVOXAMINE 50MG TABLET PO SCH ×2 (12:21→20:43)
[2018-05-24 12:48] VITALS: BP 113/66
[2018-05-24] MEDS: DIPHENHYDRAMINE/ZINC CRM 2%, 30GM TP PRN (17:32)
[2018-05-24] MEDS: OXYcodone IR 5MG TABLET PO PRN (18:29)
[2018-05-24 19:01] VITALS: BP 143/75
[2018-05-24] MEDS: VERAPAMIL ER 180MG TABLET.ER PO SCH (20:52)
[2018-05-25 00:56] VITALS: BP 124/70
[2018-05-25] MEDS: GABAPENTIN 100 MG CAPSULE PO SCH ×2 (05:52→09:28)
[2018-05-25 07:01] VITALS: BP 122/72
[2018-05-25] MEDS: METHYLPHENIDATE 10 MG TABLET PO SCH (09:27)
[2018-05-25] MEDS: SENNA/DOCUSATE TABLET PO SCH (09:28)
[2018-05-25] MEDS: ARIPIPRAZOLE 5 MG TABLET PO SCH (09:28)
[2018-05-25] MEDS: FLUVOXAMINE 50MG TABLET PO SCH (09:28)
[2018-05-25] MEDS: OXYcodone IR 5MG TABLET PO PRN (09:28)
[2018-05-25] MEDS: RIVAROXABAN 15 MG TABLET PO SCH (09:29)
[2018-05-25] MEDS: TAMSULOSIN 0.4 MG CAP.ER.24H PO SCH (09:29)
[2018-05-25] MEDS ORDERED: FLUV50TA2 PO (10:11)
[2018-05-25] MEDS ORDERED: CLOT15CR5 TP (10:11)
[2018-05-25] MEDS ORDERED: RIVA1TAB PO (10:11)
[2018-05-25] MEDS: DIPHENHYDRAMINE/ZINC CRM 2%, 30GM TP PRN (11:37)
[2018-05-25] MEDS: CLOTRIMAZOLE CRM 1%, 15GM TP SCH (11:37)
== END 2018-05-25 12:59 | disposition home health service (06) | DRG 166 ==
LOC: ED 14:50 → EDIP 15:29 → 5SO 16:54 → CCU 18:19 → 5SO 05-22 13:38
PROVIDERS: ADMIT Hospitalist; ATTEND Family Medicine
PROC: 5A12012 Performance of Cardiac Output, Single, Manual (ICD-10-PCS; principal; 2018-05-20)
PROC: 06H03DZ Insertion of Intraluminal Device into Inferior Vena Cava, Percutaneous Approach (ICD-10-PCS; 2018-05-21)
PROC: B5191ZA Fluoroscopy of Inferior Vena Cava using Low Osmolar Contrast, Guidance (ICD-10-PCS; 2018-05-21)
PROC: B549ZZA Ultrasonography of Inferior Vena Cava, Guidance (ICD-10-PCS; 2018-05-21)
PROC: 5A09357 Assistance with Respiratory Ventilation, Less than 24 Consecutive Hours, Continuous Positive Airway Pressure (ICD-10-PCS; 2018-05-21)
DX: I26.99 Other pulmonary embolism without acute cor pulmonale (principal); J96.01 Acute respiratory failure with hypoxia; I46.9 Cardiac arrest, cause unspecified; D68.59 Other primary thrombophilia; F11.20 Opioid dependence, uncomplicated; Z99.11 Dependence on respirator [ventilator] status; I82.403 Acute embolism and thrombosis of unspecified deep veins of lower extremity, bilateral; F41.9 Anxiety disorder, unspecified; G89.4 Chronic pain syndrome; M54.9 Dorsalgia, unspecified; I87.2 Venous insufficiency (chronic) (peripheral); F42.9 Obsessive-compulsive disorder, unspecified; F32.9 Major depressive disorder, single episode, unspecified; N40.0 Benign prostatic hyperplasia without lower urinary tract symptoms; I48.0 Paroxysmal atrial fibrillation; F90.9 Attention-deficit hyperactivity disorder, unspecified type; F13.90 Sedative, hypnotic, or anxiolytic use, unspecified, uncomplicated; G47.30 Sleep apnea, unspecified; E66.9 Obesity, unspecified; I07.1 Rheumatic tricuspid insufficiency; E03.9 Hypothyroidism, unspecified; D64.9 Anemia, unspecified; R73.9 Hyperglycemia, unspecified; W18.39XA Other fall on same level, initial encounter; Z96.643 Presence of artificial hip joint, bilateral; Z60.2 Problems related to living alone; Z81.1 Family history of alcohol abuse and dependence; Z80.52 Family history of malignant neoplasm of bladder; Z86.14 Personal history of Methicillin resistant Staphylococcus aureus infection; Z98.1 Arthrodesis status; Z80.9 Family history of malignant neoplasm, unspecified; Z88.8 Allergy status to other drugs, medicaments and biological substances; Z80.8 Family history of malignant neoplasm of other organs or systems; Y93.89 Activity, other specified; Y92.128 Other place in nursing home as the place of occurrence of the external cause; Y99.8 Other external cause status; Z91.041 Radiographic dye allergy status; Z80.1 Family history of malignant neoplasm of trachea, bronchus and lung; Z80.6 Family history of leukemia; Z79.01 Long term (current) use of anticoagulants; Z72.0 Tobacco use; Z79.899 Other long term (current) drug therapy; Z68.30 Body mass index [BMI] 30.0-30.9, adult
CPT/HCPCS: 36415; 37191; 70450; 71045; 71275; 76937; 80053; 81003; 83735; 83880; 84100; 84439; 84443; 84484; 85025; 85379; 85520; 85610; 87081; 93005; 93306; 93970; 94640; 94660; 99285; C1880; G0378; J1644; J2250; J2997; J3010; J7613; Q9966; Q9967; C1769; J2310

== ENCOUNTER 2018-06-08 10:13 | Emergency (ER) | payer MEDICARE, BC ==
[~2018-06-08] VITALS: Ht 180.3 cm; Wt 100.4 kg
[~2018-06-08 10:13] MED LIST changes: +CLOT15CR5 TP; +FLUV50TA2 PO; +RIVA1TAB PO
[2018-06-08 11:28] LABS: BASOPHILS # (AUTO) 0.03 x10^3/uL (0-0.1); BASOPHILS % (AUTO) 1 % (0-1); EOSINOPHILS # (AUTO) 0.12 x10^3/uL (0-0.4); EOSINOPHILS % (AUTO) 2 % (1-7); LYMPHOCYTES # (AUTO) 1.19 x10^3/uL (1-3.4); LYMPHOCYTES % (AUTO) 21 % (22-44); MD NO; MEAN CORPUSCULAR HEMOGLOBIN 27.1 pg (27.5-34.5); MEAN CORPUSCULAR HGB CONC 31.9 g/dL (33.2-36.2); MEAN CORPUSCULAR VOLUME 84.8 fL (81-97); MEAN PLATELET VOLUME 7.2 fL (7.4-10.4); MONOCYTES # (AUTO) 0.45 x10^3/uL (0.2-0.8); MONOCYTES % (AUTO) 8 % (2-9); NEUTROPHILS # (AUTO) 3.94 x10^3/uL (1.8-6.8); NEUTROPHILS % (AUTO) 69 % (42-75); PLATELET COUNT 309 x10^3/uL (130-400); RED BLOOD COUNT 4.55 x10^6/uL (4.38-5.82); RED CELL DISTRIBUTION WIDTH 18.5 % (9.4-14.8)
[2018-06-08 11:52] LABS: ALANINE AMINOTRANSFERASE 15 U/L (12-78); ALBUMIN 3.6 g/dL (3.4-5.0); ANION GAP 7 mmol/L (5-15); CALCIUM 8.8 mg/dL (8.5-10.1); CHLORIDE 108 mmol/L (98-107); CREATININE 0.93 mg/dL (0.7-1.3)
[2018-06-08 11:54] LABS: ALKALINE PHOSPHATASE 96 U/L (45-117); BILIRUBIN,TOTAL 0.2 mg/dL (0.2-1.0); TOTAL PROTEIN 7.5 g/dL (6.4-8.2)
[2018-06-08 12:18] VITALS: BP 156/68
== END 2018-06-08 13:17 | disposition home or self-care (01) ==
LOC: ED 10:47
DX: I83.10 Varicose veins of unspecified lower extremity with inflammation (principal); I48.91 Unspecified atrial fibrillation; Z86.14 Personal history of Methicillin resistant Staphylococcus aureus infection; Z86.718 Personal history of other venous thrombosis and embolism
CPT/HCPCS: 36415; 80053; 83605; 84145; 85025; 87040; 93970; 99284

== ENCOUNTER 2019-01-12 09:01 | Outpatient (CLI) | payer MEDICARE, BC ==
[~2019-01-12 09:01] MED LIST changes: -ECON15CR TP; +ECON15CR11 TP; +FLUT15.845 NS; -FLUT15.88 NS; +LOSA25TA25 PO; -LOSA25TA6 PO; +SENN-177 PO; -SENN1TAB8 PO; -VERA180T56 PO; +VERA180T6 PO
== END 2019-01-12 23:59 | disposition home or self-care (01) ==
LOC: CFH 09:01
PROVIDERS: ATTEND Physician Assistant Surgical
DX: M50.31 Other cervical disc degeneration, high cervical region (principal); M48.02 Spinal stenosis, cervical region; M25.78 Osteophyte, vertebrae; M46.02 Spinal enthesopathy, cervical region; M50.020 Cervical disc disorder with myelopathy, mid-cervical region, unspecified level; M06.9 Rheumatoid arthritis, unspecified; Z91.041 Radiographic dye allergy status; Z98.890 Other specified postprocedural states; M51.34 Other intervertebral disc degeneration, thoracic region; G95.89 Other specified diseases of spinal cord; M51.24 Other intervertebral disc displacement, thoracic region; M51.35 Other intervertebral disc degeneration, thoracolumbar region; M43.16 Spondylolisthesis, lumbar region; M48.061 Spinal stenosis, lumbar region without neurogenic claudication
CPT/HCPCS: 72141; 72146; 72148

== ENCOUNTER 2019-04-19 09:13 | Emergency (ER) | payer MEDICARE, BC ==
[~2019-04-19] VITALS: Ht 175.3 cm; Wt 110.0 kg
--- NOTE | 2019-04-19 10:01 | NUR ---
PT UPRIGHT ON GURNEY AWAKE & CALM, RESPONDS APPROP TO STAFF, NAD, COMFORT MEASURES PROVIDED, CAREGIVER AT BS, CALL LIGHT WITHIN REACH.
[2019-04-19] MEDS ORDERED: LORazepam 2 MG/ML, 1ML ONE ×2 (10:24→16:39)
[2019-04-19] MEDS ORDERED: LORazepam 2 MG/ML, 1ML IVPush ONE ×2 (10:30→17:00)
[2019-04-19] MEDS ORDERED: SODIUM CHLORIDE FLUSH 10ML SYR IVF ONE (10:30)
--- NOTE | 2019-04-19 10:40 | NUR ---
PT UNABLE TO VOID AT THIS TIME, BSU IN PLACE.
--- NOTE | 2019-04-19 11:02 | NUR ---
PT REMAINS UPRIGHT ON GURNEY AWAKE & CALM, RESPONDS APPROP TO STAFF, NAD, COMFORT MEASURES PROVIDED, CAREGIVER AT BS, CALL LIGHT WITHIN REACH.
[2019-04-19 11:03] LABS: BASOPHILS # (AUTO) 0.03 x10^3/uL (0-0.1); BASOPHILS % (AUTO) 0 % (0-1); EOSINOPHILS # (AUTO) 0.09 x10^3/uL (0-0.4); EOSINOPHILS % (AUTO) 1 % (1-7); LYMPHOCYTES # (AUTO) 1.12 x10^3/uL (1-3.4); LYMPHOCYTES % (AUTO) 15 % (22-44); MD NO; MEAN CORPUSCULAR HEMOGLOBIN 29.9 pg (27.5-34.5); MEAN CORPUSCULAR HGB CONC 32.7 g/dL (33.2-36.2); MEAN CORPUSCULAR VOLUME 91.4 fL (81-97); MEAN PLATELET VOLUME 7.8 fL (7.4-10.4); MONOCYTES % (AUTO) 8 % (2-9); NEUTROPHILS # (AUTO) 5.69 x10^3/uL (1.8-6.8); NEUTROPHILS % (AUTO) 76 % (42-75); PLATELET COUNT 291 x10^3/uL (130-400); RED BLOOD COUNT 4.81 x10^6/uL (4.38-5.82); RED CELL DISTRIBUTION WIDTH 16.5 % (9.4-14.8)
[2019-04-19 11:15] LABS: ALANINE AMINOTRANSFERASE 12 U/L (12-78); ALBUMIN 3.6 g/dL (3.4-5.0); ANION GAP 5 mmol/L (5-15); CALCIUM 9.1 mg/dL (8.5-10.1); CHLORIDE 103 mmol/L (98-107); CREATININE 1.03 mg/dL (0.7-1.3)
[2019-04-19 11:17] LABS: ALKALINE PHOSPHATASE 101 U/L (45-117); BILIRUBIN,TOTAL 0.5 mg/dL (0.2-1.0); CREATINE KINASE, TOTAL 50 U/L (39-308)
--- NOTE | 2019-04-19 11:26 | NUR ---
PT RETURNED FROM CT
[2019-04-19 11:52] LABS: MICROSCOPIC NOT IND
[2019-04-19 11:55] LABS: CULTURE INDICATED? NO
--- NOTE | 2019-04-19 11:59 | NUR ---
PT UPRIGHT ON GURNEY AWAKE, REMAINS TREMULOUS BUT MOSTLY COMFORTABLE, RESPONDS APPROP TO STAFF, NAD, COMFORT MEASURES PROVIDED, CAREGIVER AT BS, CALL LIGHT WITHIN REACH.
--- NOTE | 2019-04-19 13:35 | NUR ---
RECEIVED REPORT AND ASSUMED PT. CARE. PT. REMAINS MONITORED WITH THE HOB ELEVATED GREATER THAN 30 DEGREES. PT. HAS A BLANKET IN PLACE FOR WARMTH. PT. WANTS TO SEE THE MD. UPDATED. PT. HAS THE SIDERAILS UP X [address] AND THE CALL LIGHT IN PLACE. PT.'S CONDITION REMAINS UNCHANGED. PT.'S CARE PROVIDER IS AT THE BEDSIDE.
--- NOTE | 2019-04-19 14:32 | NUR ---
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 HE'S CURRENTLY WAITING TO BE EVAUATED BY NEUROLOGY. PT. WAS REMINDED TO REMAIN NPO. PT. REMAINS MONITORED WITH STABLE VSS.
--- NOTE | 2019-04-19 15:25 | NUR ---
NO CHANGES AT THIS TIME.
--- NOTE | 2019-04-19 15:32 | NUR ---
PT. AND TOP FLAVOR ATTENDANT UPDATED THAT WE ARE STILL WAITING ON NEUROLOGY.
--- NOTE | 2019-04-19 16:44 | NUR ---
TASK RN- REQUESTING ATIVAN FOR TREMULOUS ACTIVITY. MD AWARE, NEW ORDERS RECIEVED AND IMPLEMENTED. PT ON CONTINUOUS SPO2 AND NIBP CYCLING Q 30 MIN. FAMILY AT BEDSIDE. CALL LIGHT IN REACH. PT AWAITING NEUROLOGY CONSULT.
[2019-04-19 17:48] VITALS: BP 132/76
--- NOTE | 2019-04-19 18:03 | NUR ---
Per , Dr. Diaz is on his way to see patient.
--- NOTE | 2019-04-19 18:24 | NUR ---
PT. HAS ASKED MULTIPLE TIMES WHEN THE SPECIALIST WILL ARRIVE. CHAY VALENZUELA HAS EXPLAINED TO THE PT. THE ER STAFF DOES NOT HAVE A SCHEDULE OF WHEN THE SPECIALIST WILL ARRIVE. THE SPECIALIST WAS CONSULTED AGAIN. VITALS MONITORED. SIDERAILS REMAIN UP X [address] WITH THE CALL LIGHT IN PLACE.
--- NOTE | 2019-04-19 19:03 | NUR ---
REPORT WAS GIVEN TO ELIGIO CARTWRIGHT.
== END 2019-04-19 19:25 | disposition home or self-care (01) ==
LOC: ED 13:31
DX: G25.1 Drug-induced tremor (principal); F41.1 Generalized anxiety disorder; F32.9 Major depressive disorder, single episode, unspecified; I48.91 Unspecified atrial fibrillation; Z86.718 Personal history of other venous thrombosis and embolism
CPT/HCPCS: 36415; 70450; 80053; 81003; 82550; 83690; 85025; 96374; 96376; 99284; J2060

== ENCOUNTER → 2019-05-07 | Outpatient (CLI) | payer MEDICARE, BC | END | disposition home or self-care (01) | LOC: RAD 10:31 | PROVIDERS: ATTEND Internal Medicine Hematology & Oncology | DX: I26.09 Other pulmonary embolism with acute cor pulmonale (principal); D68.59 Other primary thrombophilia; M19.011 Primary osteoarthritis, right shoulder; M47.816 Spondylosis without myelopathy or radiculopathy, lumbar region; M17.0 Bilateral primary osteoarthritis of knee; Z86.718 Personal history of other venous thrombosis and embolism; Z87.891 Personal history of nicotine dependence; Z91.048 Other nonmedicinal substance allergy status; Z88.8 Allergy status to other drugs, medicaments and biological substances; Z88.1 Allergy status to other antibiotic agents; Z96.643 Presence of artificial hip joint, bilateral | CPT/HCPCS: 77075 ==

== ENCOUNTER 2019-06-17 10:20 | Emergency (ER) | payer MEDICARE, BC ==
[~2019-06-17] VITALS: Ht 180.3 cm; Wt 101.1 kg
[2019-06-17 10:26] VITALS: BP 143/60
== END 2019-06-17 11:02 | disposition home or self-care (01) ==
LOC: ED 10:57
DX: Z48.01 Encounter for change or removal of surgical wound dressing (principal); I48.91 Unspecified atrial fibrillation; Z86.718 Personal history of other venous thrombosis and embolism; Z91.09 Other allergy status, other than to drugs and biological substances
CPT/HCPCS: 99282; 99283

== ENCOUNTER 2019-06-19 10:38 | Emergency (ER) | payer MEDICARE, BC ==
[~2019-06-19] VITALS: Ht 180.3 cm; Wt 101.7 kg
[2019-06-19 10:44] VITALS: BP 126/54
--- NOTE | 2019-06-19 11:11 | NUR ---
PATIENT BROUGHT BACK FROM TRIAGE FOR RECHECK OF LOWER BACK WOUND.
--- NOTE | 2019-06-19 11:22 | NUR ---
WOUND REPACKED BY Yefri MIGUEL
--- NOTE | 2019-06-19 11:34 | NUR ---
DISCHARGE INSTRUCTIONS REVIEWED
== END 2019-06-19 11:35 | disposition home or self-care (01) ==
LOC: ED 11:00
DX: Z48.00 Encounter for change or removal of nonsurgical wound dressing (principal); I48.91 Unspecified atrial fibrillation; Z86.718 Personal history of other venous thrombosis and embolism; Z88.8 Allergy status to other drugs, medicaments and biological substances
CPT/HCPCS: 99283

== ENCOUNTER 2019-06-21 09:59 | Emergency (ER) | payer MEDICARE, BC ==
[~2019-06-21] VITALS: Ht 180.3 cm; Wt 102.9 kg
[2019-06-21 10:13] VITALS: BP 133/57
--- NOTE | 2019-06-21 10:25 | NUR ---
4TH RETURN FOR ABSCESS WOUDN CARE. +DRAINAGE. REPACKED BY
== END 2019-06-21 10:40 | disposition home or self-care (01) ==
LOC: ED 10:00
DX: Z48.01 Encounter for change or removal of surgical wound dressing (principal); Z87.891 Personal history of nicotine dependence; Z86.718 Personal history of other venous thrombosis and embolism
CPT/HCPCS: 99283

== ENCOUNTER 2019-06-23 10:00 | Emergency (ER) | payer MEDICARE, BC ==
[~2019-06-23] VITALS: Ht 180.3 cm; Wt 103.1 kg
[~2019-06-23 10:00] MED LIST changes: -ECON15CR11 TP; +ECON15CR3 TP; +SENN-190 PO; -SENN-88 PO; -TRAZ-137 PO; +TRAZ-175 PO; +VERA120T13 PO; -VERA120T5 PO
[2019-06-23 10:46] VITALS: BP 128/43
== END 2019-06-23 12:51 ==
LOC: ED 12:30
DX: L02.212 Cutaneous abscess of back [any part, except buttock and flank] (principal); I48.91 Unspecified atrial fibrillation; Z87.891 Personal history of nicotine dependence
CPT/HCPCS: 99282; 99283

== ENCOUNTER 2019-06-25 14:09 | Outpatient (CLI) | payer MEDICARE, BC | END 2019-06-25 23:59 | disposition home or self-care (01) | LOC: WOUND 14:09 | PROVIDERS: ATTEND Family Medicine | DX: T81.31XA Disruption of external operation (surgical) wound, not elsewhere classified, initial encounter (principal); L02.212 Cutaneous abscess of back [any part, except buttock and flank]; I48.20 Chronic atrial fibrillation, unspecified; E66.01 Morbid (severe) obesity due to excess calories; I48.91 Unspecified atrial fibrillation; F32.9 Major depressive disorder, single episode, unspecified; I87.2 Venous insufficiency (chronic) (peripheral); Z68.31 Body mass index [BMI] 31.0-31.9, adult; Z96.643 Presence of artificial hip joint, bilateral; Z87.891 Personal history of nicotine dependence; Y83.8 Other surgical procedures as the cause of abnormal reaction of the patient, or of later complication, without mention of misadventure at the time of the procedure; Y92.89 Other specified places as the place of occurrence of the external cause | CPT/HCPCS: G0463 ==

== ENCOUNTER 2019-07-02 08:15 | Outpatient (CLI) | payer MEDICARE, BC ==
[~2019-07-02 08:15] MED LIST changes: +ECON15CR11 TP; -ECON15CR3 TP; -SENN-190 PO; +SENN-88 PO; +TRAZ-137 PO; -TRAZ-175 PO; -VERA120T13 PO; +VERA120T5 PO
== END 2019-07-02 23:59 | disposition home or self-care (01) ==
LOC: WOUND 08:15
PROVIDERS: ATTEND Family Medicine
DX: T81.31XD Disruption of external operation (surgical) wound, not elsewhere classified, subsequent encounter (principal); L02.212 Cutaneous abscess of back [any part, except buttock and flank]; I48.20 Chronic atrial fibrillation, unspecified; E66.01 Morbid (severe) obesity due to excess calories; I48.91 Unspecified atrial fibrillation; F32.9 Major depressive disorder, single episode, unspecified; I87.2 Venous insufficiency (chronic) (peripheral); Z68.31 Body mass index [BMI] 31.0-31.9, adult; Z96.643 Presence of artificial hip joint, bilateral; Z87.891 Personal history of nicotine dependence; Y83.8 Other surgical procedures as the cause of abnormal reaction of the patient, or of later complication, without mention of misadventure at the time of the procedure
CPT/HCPCS: 97602

== ENCOUNTER → 2019-07-09 | Outpatient (CLI) | payer MEDICARE, BC | END | disposition home or self-care (01) | LOC: WOUND 09:10 | PROVIDERS: ATTEND Family Medicine | DX: T81.31XD Disruption of external operation (surgical) wound, not elsewhere classified, subsequent encounter (principal); L02.212 Cutaneous abscess of back [any part, except buttock and flank]; I87.2 Venous insufficiency (chronic) (peripheral); I48.20 Chronic atrial fibrillation, unspecified; E66.01 Morbid (severe) obesity due to excess calories; F32.9 Major depressive disorder, single episode, unspecified; Z68.31 Body mass index [BMI] 31.0-31.9, adult; Z86.14 Personal history of Methicillin resistant Staphylococcus aureus infection; Z87.891 Personal history of nicotine dependence; Z86.718 Personal history of other venous thrombosis and embolism; Y83.8 Other surgical procedures as the cause of abnormal reaction of the patient, or of later complication, without mention of misadventure at the time of the procedure | CPT/HCPCS: 97597 ==

== ENCOUNTER → 2019-07-16 | Outpatient (CLI) | payer MEDICARE, BC | END | disposition home or self-care (01) | LOC: WOUND 09:30 | PROVIDERS: ATTEND Family Medicine | DX: T81.31XD Disruption of external operation (surgical) wound, not elsewhere classified, subsequent encounter (principal); L02.212 Cutaneous abscess of back [any part, except buttock and flank]; I48.20 Chronic atrial fibrillation, unspecified; I87.2 Venous insufficiency (chronic) (peripheral); E66.01 Morbid (severe) obesity due to excess calories; N40.0 Benign prostatic hyperplasia without lower urinary tract symptoms; F32.9 Major depressive disorder, single episode, unspecified; F98.8 Other specified behavioral and emotional disorders with onset usually occurring in childhood and adolescence; F42.9 Obsessive-compulsive disorder, unspecified; Z96.643 Presence of artificial hip joint, bilateral; Z88.8 Allergy status to other drugs, medicaments and biological substances; Z87.891 Personal history of nicotine dependence; Z86.718 Personal history of other venous thrombosis and embolism; Z86.14 Personal history of Methicillin resistant Staphylococcus aureus infection; Y83.8 Other surgical procedures as the cause of abnormal reaction of the patient, or of later complication, without mention of misadventure at the time of the procedure | CPT/HCPCS: 87070; 87077; 87186; 87205; 97602 ==

== ENCOUNTER → 2019-07-23 | Outpatient (CLI) | payer MEDICARE, BC ==
[~2019-07-23] MED LIST changes: -ECON15CR11 TP; +ECON15CR3 TP; -TRAZ-137 PO; +TRAZ-175 PO; +VERA120T13 PO; -VERA120T5 PO
== END | disposition home or self-care (01) ==
LOC: WOUND 10:02
PROVIDERS: ATTEND Family Medicine
DX: T81.31XD Disruption of external operation (surgical) wound, not elsewhere classified, subsequent encounter (principal); L02.212 Cutaneous abscess of back [any part, except buttock and flank]; I87.2 Venous insufficiency (chronic) (peripheral); E66.01 Morbid (severe) obesity due to excess calories; N40.0 Benign prostatic hyperplasia without lower urinary tract symptoms; F32.9 Major depressive disorder, single episode, unspecified; F98.8 Other specified behavioral and emotional disorders with onset usually occurring in childhood and adolescence; F42.9 Obsessive-compulsive disorder, unspecified; Z96.643 Presence of artificial hip joint, bilateral; Z88.8 Allergy status to other drugs, medicaments and biological substances; Z87.891 Personal history of nicotine dependence; Z86.718 Personal history of other venous thrombosis and embolism; Z86.14 Personal history of Methicillin resistant Staphylococcus aureus infection; Y83.8 Other surgical procedures as the cause of abnormal reaction of the patient, or of later complication, without mention of misadventure at the time of the procedure
CPT/HCPCS: 97597

== ENCOUNTER 2019-07-28 12:24 | Outpatient (CLI) | payer MEDICARE, BC ==
[2019-07-28 15:38] LABS: HCT (SEDRATE) 40.3 % (39.2-51.8)
[2019-07-28 15:39] LABS: BASOPHILS # (AUTO) 0.03 x10^3/uL (0-0.1); BASOPHILS % (AUTO) 0 % (0-1); EOSINOPHILS # (AUTO) 0.11 x10^3/uL (0-0.4); EOSINOPHILS % (AUTO) 1 % (1-7); LYMPHOCYTES % (AUTO) 21 % (22-44); MD NO; MEAN CORPUSCULAR HEMOGLOBIN 28.8 pg (27.5-34.5); MEAN CORPUSCULAR HGB CONC 32.5 g/dL (33.2-36.2); MEAN CORPUSCULAR VOLUME 88.6 fL (81-97); MEAN PLATELET VOLUME 7.2 fL (7.4-10.4); MONOCYTES % (AUTO) 8 % (2-9); NEUTROPHILS # (AUTO) 5.23 x10^3/uL (1.8-6.8); NEUTROPHILS % (AUTO) 69 % (42-75); PLATELET COUNT 310 x10^3/uL (130-400); RED CELL DISTRIBUTION WIDTH 17.2 % (9.4-14.8)
[2019-07-28 15:46] LABS: CREATININE 1.18 mg/dL (0.7-1.3)
== END 2019-07-28 23:59 | disposition home or self-care (01) ==
LOC: CFH 12:24
PROVIDERS: ATTEND Internal Medicine
DX: L02.212 Cutaneous abscess of back [any part, except buttock and flank] (principal); T81.31XA Disruption of external operation (surgical) wound, not elsewhere classified, initial encounter
CPT/HCPCS: 36415; 82565; 84520; 85025; 85651; 86140

== ENCOUNTER 2019-07-28 13:58 | Outpatient (CLI) | payer MEDICARE, BC | END 2019-07-28 23:59 | disposition home or self-care (01) | LOC: RAD 13:58 | PROVIDERS: ATTEND Internal Medicine | DX: Z02.9 Encounter for administrative examinations, unspecified (principal) ==

== ENCOUNTER → 2019-07-28 | Outpatient (CLI) | payer MEDICARE, BC | END | disposition home or self-care (01) | LOC: WOUND 11:05 | PROVIDERS: ATTEND Internal Medicine | DX: T81.31XD Disruption of external operation (surgical) wound, not elsewhere classified, subsequent encounter (principal); L02.212 Cutaneous abscess of back [any part, except buttock and flank]; I87.2 Venous insufficiency (chronic) (peripheral); E66.01 Morbid (severe) obesity due to excess calories; N40.0 Benign prostatic hyperplasia without lower urinary tract symptoms; F32.9 Major depressive disorder, single episode, unspecified; F98.8 Other specified behavioral and emotional disorders with onset usually occurring in childhood and adolescence; F42.9 Obsessive-compulsive disorder, unspecified; Z96.643 Presence of artificial hip joint, bilateral; Z88.8 Allergy status to other drugs, medicaments and biological substances; Z87.891 Personal history of nicotine dependence; Z86.718 Personal history of other venous thrombosis and embolism; Z86.14 Personal history of Methicillin resistant Staphylococcus aureus infection; Y83.8 Other surgical procedures as the cause of abnormal reaction of the patient, or of later complication, without mention of misadventure at the time of the procedure | CPT/HCPCS: 72131; 97597 ==

== ENCOUNTER 2019-08-04 09:26 | Outpatient (CLI) | payer MEDICARE, BC | END 2019-08-04 23:59 | disposition home or self-care (01) | LOC: WOUND 09:26 | PROVIDERS: ATTEND Internal Medicine | DX: T81.31XD Disruption of external operation (surgical) wound, not elsewhere classified, subsequent encounter (principal); L02.212 Cutaneous abscess of back [any part, except buttock and flank]; I48.20 Chronic atrial fibrillation, unspecified; I87.2 Venous insufficiency (chronic) (peripheral); E66.01 Morbid (severe) obesity due to excess calories; N40.0 Benign prostatic hyperplasia without lower urinary tract symptoms; F32.9 Major depressive disorder, single episode, unspecified; F98.8 Other specified behavioral and emotional disorders with onset usually occurring in childhood and adolescence; F42.9 Obsessive-compulsive disorder, unspecified; Z96.643 Presence of artificial hip joint, bilateral; Z88.8 Allergy status to other drugs, medicaments and biological substances; Z87.891 Personal history of nicotine dependence; Z86.718 Personal history of other venous thrombosis and embolism; Z68.31 Body mass index [BMI] 31.0-31.9, adult; Z86.14 Personal history of Methicillin resistant Staphylococcus aureus infection; Y83.8 Other surgical procedures as the cause of abnormal reaction of the patient, or of later complication, without mention of misadventure at the time of the procedure | CPT/HCPCS: 97597 ==

== ENCOUNTER → 2019-08-13 | Outpatient (CLI) | payer MEDICARE, BC | END | disposition home or self-care (01) | LOC: WOUND 13:22 | PROVIDERS: ATTEND Family Medicine | DX: T81.31XD Disruption of external operation (surgical) wound, not elsewhere classified, subsequent encounter (principal); L02.212 Cutaneous abscess of back [any part, except buttock and flank]; I48.20 Chronic atrial fibrillation, unspecified; I87.2 Venous insufficiency (chronic) (peripheral); E66.01 Morbid (severe) obesity due to excess calories; N40.0 Benign prostatic hyperplasia without lower urinary tract symptoms; F32.9 Major depressive disorder, single episode, unspecified; F98.8 Other specified behavioral and emotional disorders with onset usually occurring in childhood and adolescence; F42.9 Obsessive-compulsive disorder, unspecified; Z96.643 Presence of artificial hip joint, bilateral; Z88.8 Allergy status to other drugs, medicaments and biological substances; Z87.891 Personal history of nicotine dependence; Z86.718 Personal history of other venous thrombosis and embolism; Z68.31 Body mass index [BMI] 31.0-31.9, adult; Z86.14 Personal history of Methicillin resistant Staphylococcus aureus infection; Y83.8 Other surgical procedures as the cause of abnormal reaction of the patient, or of later complication, without mention of misadventure at the time of the procedure | CPT/HCPCS: 97602 ==

== ENCOUNTER 2019-08-18 09:16 | Outpatient (CLI) | payer MEDICARE, BC ==
[2019-08-18] MEDS ORDERED: VISIPAQUE 270 MG/ML, 50ML BOTTLE ONE (10:36)
== END 2019-08-18 23:59 | disposition home or self-care (01) ==
LOC: RAD 09:16
PROVIDERS: ATTEND Internal Medicine Infectious Disease
DX: A49.02 Methicillin resistant Staphylococcus aureus infection, unspecified site (principal); F31.9 Bipolar disorder, unspecified; Z86.718 Personal history of other venous thrombosis and embolism
CPT/HCPCS: 36573; C1751; Q9966

== ENCOUNTER 2019-08-20 10:06 | Outpatient (CLI) | payer MEDICARE, BC | END 2019-08-20 23:59 | disposition home or self-care (01) | LOC: WOUND 10:06 | PROVIDERS: ATTEND Family Medicine | DX: T81.31XD Disruption of external operation (surgical) wound, not elsewhere classified, subsequent encounter (principal); L02.212 Cutaneous abscess of back [any part, except buttock and flank]; I48.20 Chronic atrial fibrillation, unspecified; I87.2 Venous insufficiency (chronic) (peripheral); E66.01 Morbid (severe) obesity due to excess calories; N40.0 Benign prostatic hyperplasia without lower urinary tract symptoms; F32.9 Major depressive disorder, single episode, unspecified; F98.8 Other specified behavioral and emotional disorders with onset usually occurring in childhood and adolescence; F42.9 Obsessive-compulsive disorder, unspecified; Z96.643 Presence of artificial hip joint, bilateral; Z88.8 Allergy status to other drugs, medicaments and biological substances; Z87.891 Personal history of nicotine dependence; Z86.718 Personal history of other venous thrombosis and embolism; Z68.31 Body mass index [BMI] 31.0-31.9, adult; Z86.14 Personal history of Methicillin resistant Staphylococcus aureus infection; Y83.8 Other surgical procedures as the cause of abnormal reaction of the patient, or of later complication, without mention of misadventure at the time of the procedure | CPT/HCPCS: G0463 ==

== ENCOUNTER 2019-08-23 17:05 | Observation (INO) | payer MEDICARE, BC ==
[~2019-08-23] VITALS: Ht 180.3 cm; Wt 95.5 kg
--- NOTE | 2019-08-23 17:55 | NUR ---
LATE ENTRY FOR 1719 69 Y/O MALE BIB AMBULANCE WITH C/O TREMORS. PER REPORT PT TREMORS HAVE INCREASED IN THE LAST FEW DAYS. PT HAS OBVIOUS TREMORS. PT HAS PICC LINE UPPER RIGHT ARM. PT STATES WE ARE ABLE TO ACCESS IT IF NEEDED. PT ALSO HAS WOUND ON BACK AND HAS BEEN SEEING INFECTIOUS DISEASE DAILY FOR IV TREATMENT. PT PLACED ON CON TPULSE OX,NIBP, GENERAL DENTIST/OWNER.
[2019-08-23] MEDS ORDERED: LORazepam 2 MG/ML, 1ML ONE (18:11)
--- NOTE | 2019-08-23 18:20 | NUR ---
MEDICATION ADMINISTERED PER ORDER. PT STILL TREMELOUS. NADN. NO OTHER NEEDS REQUESTED AT THIS TIME;.
[2019-08-23] MEDS ORDERED: SODIUM CHLORIDE FLUSH 10ML SYR IVF ONE (18:30)
[2019-08-23] MEDS ORDERED: LORazepam 2 MG/ML, 1ML IVPush PRN (18:30)
[2019-08-23 18:41] LABS: BASOPHILS % (AUTO) 1 % (0-1); EOSINOPHILS # (AUTO) 0.09 x10^3/uL (0-0.4); EOSINOPHILS % (AUTO) 1 % (1-7); LYMPHOCYTES # (AUTO) 1.41 x10^3/uL (1-3.4); LYMPHOCYTES % (AUTO) 17 % (22-44); MD NO; MEAN CORPUSCULAR HEMOGLOBIN 28.9 pg (27.5-34.5); MEAN CORPUSCULAR HGB CONC 33.3 g/dL (33.2-36.2); MEAN CORPUSCULAR VOLUME 86.8 fL (81-97); MEAN PLATELET VOLUME 7.3 fL (7.4-10.4); MONOCYTES # (AUTO) 0.76 x10^3/uL (0.2-0.8); MONOCYTES % (AUTO) 9 % (2-9); NEUTROPHILS # (AUTO) 6.14 x10^3/uL (1.8-6.8); NEUTROPHILS % (AUTO) 72 % (42-75); PLATELET COUNT 292 x10^3/uL (130-400); RED BLOOD COUNT 5.09 x10^6/uL (4.38-5.82); RED CELL DISTRIBUTION WIDTH 16.3 % (9.4-14.8)
--- NOTE | 2019-08-23 18:46 | NUR ---
LATE ENTRY FOR 1835 CHECKED ON PT. PT SLEEPING. NO TREMORS NOTED. EDU
--- NOTE | 2019-08-23 18:47 | NUR ---
CHECKED ON PT AGAIN. PT NOW HAS TREMORS. PT STATES "I NEVER HAVE TREMORS WHEN I SLEEP" WHEN HE WAS TOLD HE DIDN'T HAVE ANY NOTICABLE TREMORS LAST TIME I CHECKED.
[2019-08-23 18:48] LABS: ALBUMIN 3.4 g/dL (3.4-5.0); ANION GAP 11 mmol/L (5-15); CALCIUM 9.1 mg/dL (8.5-10.1); CHLORIDE 107 mmol/L (98-107)
[2019-08-23 18:49] LABS: CREATININE 1.03 mg/dL (0.7-1.3)
--- NOTE | 2019-08-23 19:01 | NUR ---
BEDSIDE REPORT TO PRACHI RN/ PT CURRENTLY SLEEPING ON [employer]. NO OBVIOUS TREMORS AT THIS TIME.
--- NOTE | 2019-08-23 19:13 | NUR ---
pt for recheck by erp
--- NOTE | 2019-08-23 20:05 | NUR ---
pt ambulated with x2 standby assist with a walker. while ambulating pt expressed feelings of weakness.
[2019-08-23] MEDS ORDERED: RIFAMPIN PO (21:21)
--- NOTE | 2019-08-23 21:24 | NUR ---
admitting md in to assess pt
[2019-08-23] MEDS ORDERED: SODIUM CHLORIDE FLUSH 10ML SYR IVF PRN (22:30)
[2019-08-23 23:30] VITALS: BP 152/73
[2019-08-24] MEDS ORDERED: ACETAMINOPHEN 325 MG TABLET PO PRN
[2019-08-24] MEDS: LORazepam 2 MG/ML, 1ML IVPush PRN ×4 (00:39→23:35)
[2019-08-24] MEDS ORDERED: RIVAROXABAN PO SCH (02:30)
[2019-08-24] MEDS: XARELTO MC SCH ×6 (02:30→08:11)
[2019-08-24] MEDS: OXYcodone IR 5MG TABLET PO PRN ×3 (04:31→21:06)
[2019-08-24 05:00] VITALS: BP 125/73
[2019-08-24] MEDS: GABAPENTIN 100 MG CAPSULE PO SCH ×4 (06:07→21:06)
[2019-08-24 07:16] VITALS: BP 122/72
[2019-08-24] MEDS: ARIPIPRAZOLE 5 MG TABLET PO SCH ×2 (08:02→21:06)
[2019-08-24] MEDS: TAMSULOSIN 0.4 MG CAP.ER.24H PO SCH (08:02)
[2019-08-24] MEDS: FLUVOXAMINE 50MG TABLET PO SCH ×2 (08:02→21:06)
[2019-08-24] MEDS ORDERED: POTASSIUM CHLORIDE 20 MEQ TAB.ER.PRT PO ONE (09:00)
[2019-08-24] MEDS ORDERED: RIVA20TA PO (09:47)
[2019-08-24] MEDS: DAPTOMYCIN 650 MG in SODIUM CHLORIDE 0.9% 100 ML IVPB SCH (14:41)
[2019-08-24 15:39] VITALS: BP 133/79
--- NOTE | 2019-08-24 16:02 | NUR ---
08/24/19 Pt will be benefit fr SNF as of today's OT eval. Addendum: 08/24/19 at 1612 by GERALD BELTRÁN OT Amended: Links added.
[2019-08-24] MEDS ORDERED: RIVAROXABAN 20 MG TABLET PO SCH (18:00)
[2019-08-24 19:35] VITALS: BP 139/71
[2019-08-25 00:50] VITALS: BP 136/79
[2019-08-25 05:42] LABS: BASOPHILS # (AUTO) 0.06 x10^3/uL (0-0.1); BASOPHILS % (AUTO) 1 % (0-1); EOSINOPHILS % (AUTO) 4 % (1-7); LYMPHOCYTES # (AUTO) 1.38 x10^3/uL (1-3.4); LYMPHOCYTES % (AUTO) 17 % (22-44); MD NO; MEAN CORPUSCULAR HEMOGLOBIN 28.8 pg (27.5-34.5); MEAN CORPUSCULAR HGB CONC 32.9 g/dL (33.2-36.2); MEAN CORPUSCULAR VOLUME 87.6 fL (81-97); MEAN PLATELET VOLUME 7.8 fL (7.4-10.4); MONOCYTES # (AUTO) 0.75 x10^3/uL (0.2-0.8); MONOCYTES % (AUTO) 10 % (2-9); NEUTROPHILS # (AUTO) 5.45 x10^3/uL (1.8-6.8); NEUTROPHILS % (AUTO) 69 % (42-75); PLATELET COUNT 291 x10^3/uL (130-400); RED BLOOD COUNT 4.77 x10^6/uL (4.38-5.82); RED CELL DISTRIBUTION WIDTH 16.9 % (9.4-14.8)
[2019-08-25] MEDS: GABAPENTIN 100 MG CAPSULE PO SCH ×2 (05:42→10:37)
[2019-08-25 05:48] LABS: ANION GAP 8 mmol/L (5-15); CHLORIDE 108 mmol/L (98-107); CREATININE 0.92 mg/dL (0.7-1.3)
[2019-08-25 07:50] VITALS: BP 146/82
[2019-08-25] MEDS: ARIPIPRAZOLE 5 MG TABLET PO SCH (08:47)
[2019-08-25] MEDS: FLUVOXAMINE 50MG TABLET PO SCH (08:47)
[2019-08-25] MEDS: TAMSULOSIN 0.4 MG CAP.ER.24H PO SCH (08:47)
[2019-08-25] MEDS: OXYcodone IR 5MG TABLET PO PRN (10:37)
[2019-08-25] MEDS: DAPTOMYCIN 650 MG in SODIUM CHLORIDE 0.9% 100 ML IVPB SCH (11:35)
== END 2019-08-25 13:42 | disposition home or self-care (01) ==
LOC: ED 21:28 → INTOOBSV 22:04 → EDIP 22:04 → 3N 23:23 → OBSVTOIN 08-24 13:33 → INTOOBSV 08-24 13:33
PROVIDERS: ADMIT Family Medicine; ATTEND Internal Medicine
DX: F15.93 Other stimulant use, unspecified with withdrawal (principal); F90.9 Attention-deficit hyperactivity disorder, unspecified type; R53.1 Weakness; Z86.718 Personal history of other venous thrombosis and embolism; Z86.711 Personal history of pulmonary embolism; L08.89 Other specified local infections of the skin and subcutaneous tissue; F42.9 Obsessive-compulsive disorder, unspecified; E03.9 Hypothyroidism, unspecified; Z86.74 Personal history of sudden cardiac arrest; E87.6 Hypokalemia; Z86.14 Personal history of Methicillin resistant Staphylococcus aureus infection; Z79.899 Other long term (current) drug therapy; Z87.891 Personal history of nicotine dependence; Z79.01 Long term (current) use of anticoagulants
CPT/HCPCS: 36415; 71045; 80048; 82040; 83735; 84100; 85025; 93005; 96365; 96366; 96375; 96376; 97161; 97166; 99285; G0378; J0878; J2060

== ENCOUNTER → 2019-08-27 | Outpatient (CLI) | payer MEDICARE, BC ==
[~2019-08-27] MED LIST changes: +RIFAMPIN PO; +RIVA20TA PO
== END | disposition home or self-care (01) ==
LOC: WOUND 13:31
PROVIDERS: ATTEND Family Medicine
DX: T81.31XD Disruption of external operation (surgical) wound, not elsewhere classified, subsequent encounter (principal); L02.212 Cutaneous abscess of back [any part, except buttock and flank]; I48.20 Chronic atrial fibrillation, unspecified; I87.2 Venous insufficiency (chronic) (peripheral); E66.01 Morbid (severe) obesity due to excess calories; N40.0 Benign prostatic hyperplasia without lower urinary tract symptoms; E03.9 Hypothyroidism, unspecified; F32.9 Major depressive disorder, single episode, unspecified; F98.8 Other specified behavioral and emotional disorders with onset usually occurring in childhood and adolescence; F42.9 Obsessive-compulsive disorder, unspecified; Z96.643 Presence of artificial hip joint, bilateral; Z88.8 Allergy status to other drugs, medicaments and biological substances; Z87.891 Personal history of nicotine dependence; Z86.718 Personal history of other venous thrombosis and embolism; Z86.14 Personal history of Methicillin resistant Staphylococcus aureus infection; Z79.01 Long term (current) use of anticoagulants; F15.90 Other stimulant use, unspecified, uncomplicated; Z79.899 Other long term (current) drug therapy; Z86.711 Personal history of pulmonary embolism; Z68.31 Body mass index [BMI] 31.0-31.9, adult; Y83.8 Other surgical procedures as the cause of abnormal reaction of the patient, or of later complication, without mention of misadventure at the time of the procedure
CPT/HCPCS: 97602

== ENCOUNTER 2019-09-03 13:40 | Outpatient (CLI) | payer MEDICARE, BC | END 2019-09-03 23:59 | disposition home or self-care (01) | LOC: WOUND 13:40 | PROVIDERS: ATTEND Family Medicine | DX: T81.31XD Disruption of external operation (surgical) wound, not elsewhere classified, subsequent encounter (principal); L02.212 Cutaneous abscess of back [any part, except buttock and flank]; I87.2 Venous insufficiency (chronic) (peripheral); I48.20 Chronic atrial fibrillation, unspecified; E03.9 Hypothyroidism, unspecified; E66.01 Morbid (severe) obesity due to excess calories; F42.9 Obsessive-compulsive disorder, unspecified; F31.9 Bipolar disorder, unspecified; Z68.34 Body mass index [BMI] 34.0-34.9, adult; Z87.891 Personal history of nicotine dependence; Z86.14 Personal history of Methicillin resistant Staphylococcus aureus infection; Z86.711 Personal history of pulmonary embolism; Z86.718 Personal history of other venous thrombosis and embolism; Z79.01 Long term (current) use of anticoagulants; Z96.643 Presence of artificial hip joint, bilateral; Y83.8 Other surgical procedures as the cause of abnormal reaction of the patient, or of later complication, without mention of misadventure at the time of the procedure | CPT/HCPCS: 97597 ==

== ENCOUNTER 2019-09-10 09:32 | Outpatient (CLI) | payer MEDICARE, BC | END 2019-09-10 23:59 | disposition home or self-care (01) | LOC: WOUND 09:32 | PROVIDERS: ATTEND Family Medicine | DX: T81.31XD Disruption of external operation (surgical) wound, not elsewhere classified, subsequent encounter (principal); L02.212 Cutaneous abscess of back [any part, except buttock and flank]; I87.2 Venous insufficiency (chronic) (peripheral); I48.20 Chronic atrial fibrillation, unspecified; E03.9 Hypothyroidism, unspecified; E66.01 Morbid (severe) obesity due to excess calories; F42.9 Obsessive-compulsive disorder, unspecified; F31.9 Bipolar disorder, unspecified; M48.02 Spinal stenosis, cervical region; Z87.891 Personal history of nicotine dependence; Z86.14 Personal history of Methicillin resistant Staphylococcus aureus infection; Z86.711 Personal history of pulmonary embolism; Z86.718 Personal history of other venous thrombosis and embolism; Z79.01 Long term (current) use of anticoagulants; Z96.643 Presence of artificial hip joint, bilateral; Z68.31 Body mass index [BMI] 31.0-31.9, adult; Y83.8 Other surgical procedures as the cause of abnormal reaction of the patient, or of later complication, without mention of misadventure at the time of the procedure | CPT/HCPCS: 97602; G0463; 99214 ==

== ENCOUNTER → 2019-10-22 | Outpatient (CLI) | payer MEDICARE, BC | END | disposition home or self-care (01) | LOC: CFH 11:28 | PROVIDERS: ATTEND Neurological Surgery | DX: Z09 Encounter for follow-up examination after completed treatment for conditions other than malignant neoplasm (principal); M47.13 Other spondylosis with myelopathy, cervicothoracic region; M47.23 Other spondylosis with radiculopathy, cervicothoracic region; M48.02 Spinal stenosis, cervical region | CPT/HCPCS: 72040; 72125; 72141 ==

== ENCOUNTER 2019-11-07 06:38 | Emergency (ER) | payer MEDICARE, BC ==
[~2019-11-07] VITALS: Ht 180.3 cm; Wt 104.7 kg
[~2019-11-07 06:38] MED LIST changes: +CLOT15CR26 TP; -CLOT15CR5 TP; +SENN-190 PO; -SENN-88 PO
[2019-11-07 06:42] VITALS: BP 156/70
--- NOTE | 2019-11-07 07:45 | NUR ---
MD Bhakta at bedside for evaluation
--- NOTE | 2019-11-07 07:53 | NUR ---
Discharge instructions reviewed.
== END 2019-11-07 08:23 | disposition home or self-care (01) ==
LOC: ED 08:15
DX: L20.9 Atopic dermatitis, unspecified (principal); I48.91 Unspecified atrial fibrillation; Z87.891 Personal history of nicotine dependence; Z86.718 Personal history of other venous thrombosis and embolism
CPT/HCPCS: 99283

== ENCOUNTER 2019-12-19 16:19 | Emergency (ER) | payer MEDICARE, BC ==
[~2019-12-19] VITALS: Ht 175.3 cm; Wt 100.0 kg
[2019-12-19] MEDS ORDERED: OXYC10TA6 PO (16:34)
[2019-12-19] MEDS ORDERED: TIZA4CAP PO (16:34)
[2019-12-19] MEDS ORDERED: PROP10TA16 PO (16:35)
[2019-12-19] MEDS ORDERED: OXAZ10CA26 PO (16:40)
[2019-12-19] MEDS ORDERED: METH5TAB12 PO (16:40)
--- NOTE | 2019-12-19 16:42 | NUR ---
THIS IS A 69 YEAR OLD MALE WHO WAS BIB BY AMBULANCE. PT HAS A 3 WEEK HX OF CERVICAL SURGERY C-COLLAR ON, DVT AND HX PE, ON XERALTO. PT CALLED 911 DUE TO "I CANT BREATHE" PT SAT ON RA 93%. PT VERY ANXIOUS. PT STATES HE LIVES ALONE. REQUEST ASSISTANCE WITH GOING TO USE URINAL. PT STATES, "I NEED YOU TO HOLD IT". ASKED IF PT LIVES ALONE, HE STATES YES, "BUT I NEED ASSISTANCE". GAVE PT URINAL, EXPLAINED TO MD ABOVE.
--- NOTE | 2019-12-19 17:05 | NUR ---
PT PLACED ON RA AT 98%
--- NOTE | 2019-12-19 17:12 | NUR ---
PT HAS A HX OF NECK FUSIONS, BACK SURGERY X 3, LOWER EXTREMITY WOUNDS X 2 YEARS, DVT, KIDNEY STONES, BPH, PVD, SCABIES, ADHD, OCD, MALNUTRITION, NARC DEPENDANCE FOR CHRONIC PAIN, ANXIETY, DEPRESSION, MRSA, KLEBSIELLA OXYTOCA SPINAL INFECTION,RESPIRATORY FAILURE, PAROXYSMAL A-FIB, UTI WITH MRO'S. CHRONIC TREMOR.
--- NOTE | 2019-12-19 17:37 | NUR ---
TASK RN: PT OOB INDEPENDANTLY, AMBULATED APPROX 25FT WITH WALKER, RN STANDBY AND PORTABLE PULSE OX MONITORING IN PLACE. PT TOLLERATED WELL, SPO2 ON RA FLUCTUATED BETWEEN 90 - 94%. PT RTD TO BED AND WAS ABLE TO POSITION SELF ON GURNEY INDEPENDENTLY. PT THEN REQUESTED URINAL. PT ABLE TO STAND INDEPENDENTLY AT BEDSIDE AND USED URINAL. RTD TO BED W/O INCIDENT. CALL LIGHT W/I REACH
--- NOTE | 2019-12-19 18:29 | NUR ---
PT REQUESTED ADDITIONAL BLANKETS, WARM BLANKET GIVEN, VERBALIZED NO NEEDS AT THIS TIME
--- NOTE | 2019-12-19 19:05 | NUR ---
PT SITTING IN BED, NO SIGNS OF DISTRESS, RESPIRATIONS EVEN AND UNLABORED. REPORT RECEIVED FROM CHAY HILL.
[2019-12-19 19:25] VITALS: BP 142/61
--- NOTE | 2019-12-19 19:35 | NUR ---
PT AMBUALTORY TO BATHROOM, STEADY GAIT WITH WALKER WHICH HE USES AT BASELINE. PT STATES "ONE LEG IS LONGER THAN THE OTHER, THAT'S WHY I CAN'T WALK." PT ALSO TOLD THIS RN HE WAS UNABLE TO OPEN HIS EYES BECAUSE THEY WERE BURNING BEFORE HE GOT OUT OF BED, PT ABLE TO OPEN EYES AND KEEP THEM OPEN TO WALK TO THE BATHROOM. SENIOR SEARCH MARKETING ANALYST, NEY CLARK, TO HELP WITH PT D/C. PT STATES HE DOESN'T HAVE HIS [place], UNSURE IF EMS LOCKED HIS DOOR. PT STATES HIS PHONE IS IN HIS HOUSE. PT HAS WALLET. PT STATES BROTHER LIVES ACROSS THE STREET, UNSURE IF BROTHER HAS [place] TO HOUSE. PT STATES BROTHER DOESN'T LIKE HIM SO HE CAN'T STAY THERE.
--- NOTE | 2019-12-19 19:58 | NUR ---
PT AMBULATORY TO D/C STEADY GAIT WITH WALKER, STATES "I CAN'T WALK." PT STATES "I HAVE ANXIETY" "WHY'D I EVEN COME HERE" "THANKS FOR NOTHING." PT GIVEN EDUCATION ABOUT BREATHING EXERCISES, PT STATES "YOU'RE NOT LISTENING TO ME" PT GIVEN PLASTER HELPER NUMBER AND OFFERED TAXI VOUCHER, WHICH HE DENIED.
== END 2019-12-19 20:01 | disposition home or self-care (01) ==
LOC: ED 18:15
DX: R06.00 Dyspnea, unspecified (principal); I10 Essential (primary) hypertension; I48.91 Unspecified atrial fibrillation; Z86.73 Personal history of transient ischemic attack (TIA), and cerebral infarction without residual deficits; Z87.891 Personal history of nicotine dependence; Z86.718 Personal history of other venous thrombosis and embolism
CPT/HCPCS: 99283

== ENCOUNTER → 2020-01-07 | Outpatient (CLI) | payer MEDICARE, BC ==
[~2020-01-07] MED LIST changes: +METH5TAB12 PO; +OXYC10TA6 PO; +PROP10TA16 PO; +TIZA4CAP PO
== END | disposition home or self-care (01) ==
LOC: RAD 09:39
PROVIDERS: ATTEND Physician Assistant Surgical
DX: M43.22 Fusion of spine, cervical region (principal); M47.12 Other spondylosis with myelopathy, cervical region; M25.78 Osteophyte, vertebrae; M48.02 Spinal stenosis, cervical region
CPT/HCPCS: 72050

== ENCOUNTER 2020-01-11 09:54 | Inpatient (IN) | payer MEDICARE, BC ==
[~2020-01-11] VITALS: Ht 180.3 cm; Wt 94.4 kg
[~2020-01-11 09:54] MED LIST changes: -MISO100T4 PO; +MISO100T7 PO; -PANT40TA5 PO; +PANT40TA6 PO
--- NOTE | 2020-01-11 10:21 | NUR ---
If patient is to be discharged patients client can garbage pick up man patient. [phone]
[2020-01-11] MEDS ORDERED: SODIUM CHLORIDE FLUSH 10ML SYR IVF ONE (10:30)
[2020-01-11 10:40] LABS: BASOPHILS # (AUTO) 0.09 x10^3/uL (0-0.1); BASOPHILS % (AUTO) 1 % (0-1); EOSINOPHILS # (AUTO) 0.33 x10^3/uL (0-0.4); EOSINOPHILS % (AUTO) 4 % (1-7); LYMPHOCYTES # (AUTO) 1.62 x10^3/uL (1-3.4); LYMPHOCYTES % (AUTO) 18 % (22-44); MD NO; MEAN CORPUSCULAR HEMOGLOBIN 26.5 pg (27.5-34.5); MEAN CORPUSCULAR HGB CONC 31.4 g/dL (33.2-36.2); MEAN PLATELET VOLUME 7.6 fL (7.4-10.4); MONOCYTES # (AUTO) 0.76 x10^3/uL (0.2-0.8); MONOCYTES % (AUTO) 9 % (2-9); NEUTROPHILS # (AUTO) 6.11 x10^3/uL (1.8-6.8); NEUTROPHILS % (AUTO) 69 % (42-75); PLATELET COUNT 278 x10^3/uL (130-400); RED BLOOD COUNT 5.23 x10^6/uL (4.38-5.82); RED CELL DISTRIBUTION WIDTH 18.9 % (9.4-14.8)
[2020-01-11 10:49] LABS: ALANINE AMINOTRANSFERASE 16 U/L (12-78); ALBUMIN 3.6 g/dL (3.4-5.0); ANION GAP 5 mmol/L (5-15); CALCIUM 9.4 mg/dL (8.5-10.1); CHLORIDE 107 mmol/L (98-107); CREATININE 1.03 mg/dL (0.7-1.3)
[2020-01-11 10:52] LABS: ALKALINE PHOSPHATASE 97 U/L (45-117); BILIRUBIN,TOTAL 0.4 mg/dL (0.2-1.0); TOTAL PROTEIN 7.7 g/dL (6.4-8.2)
--- NOTE | 2020-01-11 11:09 | NUR ---
PT WITH REPORTS OF INCREASED BLE WEAKNESS SINCE FRIDAY, CAUSING THE PT DIFFICULTY TO WALK. PT STATES ALSO THAT HE HAS HAD "STINKY" URINE FOR THE PAST FEW DAYS. Addendum: 01/11/20 at 1110 by AMCCOMB PER TASK RN REPORT PT WAS ABLE TO MOVE LEGS AND LEFT HIPS IN GURNEY TO REMOVE PANTS
[2020-01-11 11:35] LABS: MICROSCOPIC AUTO
[2020-01-11] MEDS ORDERED: CEFTRIAXONE PMX 1GM/50ML 50 ML IV ONE (12:00)
[2020-01-11] MEDS ORDERED: CEFTRIAXONE PMX 1GM/50ML 50 ML ONE (12:12)
[2020-01-11] MEDS ORDERED: NEOSPORIN OINT. PKT 1 PACKET ONE (12:46)
--- NOTE | 2020-01-11 12:57 | NUR ---
PT UPDATED ON POC. PLAN FOR ADMISSION. PT GIVEN BLANKET AND TOWELS PLACED UNDER HEAD FOR COMFORT. PT REQUESTING HIS CAREGIVER TO COME VISIT, WILL ASK IF SHE IS IN THE WAITING RM PER HIS REQUEST
[2020-01-11] MEDS ORDERED: MUPIROCIN OINT 2%, 22GM TP SCH (12:59)
[2020-01-11] MEDS ORDERED: MUPIROCIN OINT 2%, 1 GM APPL. TP SCH (13:00)
[2020-01-11] MEDS: LORazepam 2 MG/ML, 1ML IVPush ONE ×2 (13:00→13:34)
--- NOTE | 2020-01-11 13:09 | NUR ---
ADMITTING MD AT BEDSIDE
[2020-01-11] MEDS ORDERED: LORazepam 2 MG/ML, 1ML ONE (13:28)
[2020-01-11] MEDS ORDERED: BISACODYL 10 MG SUPP PR PRN (13:30)
[2020-01-11] MEDS ORDERED: MELATONIN 5 MG TABLET PO PRN (13:30)
[2020-01-11] MEDS ORDERED: POLYETHYLENE GLYCOL 17 GM PACKET PO PRN (13:30)
[2020-01-11] MEDS ORDERED: ACETAMINOPHEN 325 MG TABLET PO PRN (13:30)
[2020-01-11] MEDS ORDERED: LORazepam 0.5MG TABLET PO PRN (13:30)
[2020-01-11] MEDS ORDERED: LIDODERM 5% PATCH TD PRN (13:30)
[2020-01-11] MEDS ORDERED: DOCUSATE 100 MG CAPSULE PO PRN (13:30)
[2020-01-11] MEDS ORDERED: ONDANSETRON 2MG/ML, 2ML IVPush PRN (13:30)
[2020-01-11] MEDS ORDERED: NS + 20MEQ KCL 1,000 ML IV ONE (13:39)
[2020-01-11 13:52] LABS: HCT (SEDRATE) 44.1 % (39.2-51.8)
[2020-01-11] MEDS: NS + 20MEQ KCL 1,000 ML IV SCH ×2 (13:52→23:30)
[2020-01-11] MEDS: CEFTRIAXONE PMX 1GM/50ML 50 ML IV SCH (13:53)
--- NOTE | 2020-01-11 13:53 | NUR ---
pT ASSISTED BACK TO BED FOUND LEANING AGAINST WALL. REVIEWED FALL PRECAUTIONS AND EDUCATION. PT INFROMED TO PLEASE CALL. PT VERBALIZING HE WOULD LIKE TO LEAVE. SPOKE WITH PT REGARDING HIS INFECTION AND BEST TO STAY AND GET IV ABX PT AGGREABLE TO THIS. PT FOUND TO BE VERY ANXIOUS SO 1MG IV ATIVAN GIVEN TO HELP CALM PATIENT.
[2020-01-11 14:00] LABS: FREE T4 (FREE THYROXINE) 1.22 ng/dL (0.76-1.46); TROPONIN I < 0.015 ng/mL (0.000-0.045)
[2020-01-11 14:44] VITALS: BP 144/90
[2020-01-11] MEDS: GABAPENTIN 100 MG CAPSULE PO SCH ×2 (16:10→21:34)
[2020-01-11 19:08] LABS: TROPONIN I < 0.015 ng/mL (0.000-0.045)
[2020-01-11 19:41] VITALS: BP 156/85
[2020-01-11] MEDS: ARIPIPRAZOLE 5 MG TABLET PO SCH (21:34)
[2020-01-11] MEDS: FLUVOXAMINE 50MG TABLET PO SCH (21:35)
[2020-01-11] MEDS: OXYcodone IR 5MG TABLET PO PRN (21:55)
[2020-01-12 00:36] VITALS: BP 175/81
[2020-01-12] MEDS: CEFTRIAXONE PMX 1GM/50ML 50 ML IV SCH ×2 (02:35→13:58)
[2020-01-12 05:23] LABS: BASOPHILS # (AUTO) 0.02 x10^3/uL (0-0.1); BASOPHILS % (AUTO) 0 % (0-1); EOSINOPHILS # (AUTO) 0.39 x10^3/uL (0-0.4); EOSINOPHILS % (AUTO) 6 % (1-7); LYMPHOCYTES # (AUTO) 2.08 x10^3/uL (1-3.4); LYMPHOCYTES % (AUTO) 31 % (22-44); MD NO; MEAN CORPUSCULAR HEMOGLOBIN 27.2 pg (27.5-34.5); MEAN CORPUSCULAR HGB CONC 32.6 g/dL (33.2-36.2); MEAN PLATELET VOLUME 7.6 fL (7.4-10.4); MONOCYTES # (AUTO) 0.71 x10^3/uL (0.2-0.8); MONOCYTES % (AUTO) 11 % (2-9); NEUTROPHILS % (AUTO) 52 % (42-75); PLATELET COUNT 227 x10^3/uL (130-400); RED BLOOD COUNT 4.87 x10^6/uL (4.38-5.82); RED CELL DISTRIBUTION WIDTH 18.8 % (9.4-14.8)
[2020-01-12 05:34] LABS: ALANINE AMINOTRANSFERASE 19 U/L (12-78); ANION GAP 6 mmol/L (5-15); CALCIUM 8.6 mg/dL (8.5-10.1); CHLORIDE 111 mmol/L (98-107); CREATININE 0.94 mg/dL (0.7-1.3)
[2020-01-12 05:36] LABS: ALKALINE PHOSPHATASE 76 U/L (45-117); BILIRUBIN,TOTAL 0.4 mg/dL (0.2-1.0)
[2020-01-12] MEDS: GABAPENTIN 100 MG CAPSULE PO SCH ×4 (05:48→21:42)
[2020-01-12] MEDS: OXYcodone IR 5MG TABLET PO PRN ×3 (06:13→21:46)
[2020-01-12 07:01] VITALS: BP 158/80
[2020-01-12] MEDS: TAMSULOSIN 0.4 MG CAP.ER.24H PO SCH (07:36)
[2020-01-12] MEDS: PANTOPRAZOLE 40MG TABLET PO SCH (07:36)
[2020-01-12] MEDS: ARIPIPRAZOLE 5 MG TABLET PO SCH ×2 (09:46→21:42)
[2020-01-12] MEDS: RIVAROXABAN 20 MG TABLET PO SCH (09:46)
[2020-01-12] MEDS: FLUVOXAMINE 50MG TABLET PO SCH ×2 (09:47→21:42)
[2020-01-12] MEDS: OXAZEPAM 10 MG CAPSULE PO SCH (09:47)
[2020-01-12] MEDS: METHYLPHENIDATE 10 MG TABLET PO SCH (10:16)
[2020-01-12 13:23] VITALS: BP 152/76
[2020-01-12] MEDS: NS + 20MEQ KCL 1,000 ML IV SCH (13:59)
[2020-01-12 20:08] VITALS: BP 137/78
[2020-01-13] MEDS: NS + 20MEQ KCL 1,000 ML IV SCH ×2 (00:02→09:59)
[2020-01-13] MEDS: CEFTRIAXONE PMX 1GM/50ML 50 ML IV SCH ×2 (01:55→14:00)
[2020-01-13] MEDS: OXYcodone IR 5MG TABLET PO PRN ×2 (02:11→11:14)
[2020-01-13 02:22] VITALS: BP 141/80
[2020-01-13] MEDS: GABAPENTIN 100 MG CAPSULE PO SCH ×2 (05:47→11:15)
[2020-01-13 06:24] LABS: BASOPHILS # (AUTO) 0.03 x10^3/uL (0-0.1); BASOPHILS % (AUTO) 0 % (0-1); EOSINOPHILS # (AUTO) 0.31 x10^3/uL (0-0.4); EOSINOPHILS % (AUTO) 4 % (1-7); LYMPHOCYTES # (AUTO) 1.56 x10^3/uL (1-3.4); LYMPHOCYTES % (AUTO) 22 % (22-44); MD NO; MEAN CORPUSCULAR HEMOGLOBIN 26.6 pg (27.5-34.5); MEAN PLATELET VOLUME 7.8 fL (7.4-10.4); MONOCYTES # (AUTO) 0.66 x10^3/uL (0.2-0.8); MONOCYTES % (AUTO) 9 % (2-9); NEUTROPHILS # (AUTO) 4.59 x10^3/uL (1.8-6.8); NEUTROPHILS % (AUTO) 64 % (42-75); PLATELET COUNT 206 x10^3/uL (130-400); RED BLOOD COUNT 4.55 x10^6/uL (4.38-5.82); RED CELL DISTRIBUTION WIDTH 18.4 % (9.4-14.8)
[2020-01-13 06:40] LABS: CHLORIDE 111 mmol/L (98-107)
[2020-01-13 06:57] LABS: ALANINE AMINOTRANSFERASE 15 U/L (12-78); ALKALINE PHOSPHATASE 73 U/L (45-117); ANION GAP 5 mmol/L (5-15); BILIRUBIN,TOTAL 0.4 mg/dL (0.2-1.0); CALCIUM 8.5 mg/dL (8.5-10.1); CREATININE 0.95 mg/dL (0.7-1.3); TOTAL PROTEIN 6.9 g/dL (6.4-8.2)
[2020-01-13 07:12] VITALS: BP 139/94
[2020-01-13] MEDS: METHYLPHENIDATE 10 MG TABLET PO SCH (09:00)
[2020-01-13] MEDS: FLUVOXAMINE 50MG TABLET PO SCH (11:14)
[2020-01-13] MEDS: RIVAROXABAN 20 MG TABLET PO SCH (11:15)
[2020-01-13] MEDS: PANTOPRAZOLE 40MG TABLET PO SCH (11:15)
[2020-01-13] MEDS: ARIPIPRAZOLE 5 MG TABLET PO SCH (11:15)
[2020-01-13] MEDS: TAMSULOSIN 0.4 MG CAP.ER.24H PO SCH (11:15)
[2020-01-13] MEDS: OXAZEPAM 10 MG CAPSULE PO SCH (11:15)
[2020-01-13] MEDS ORDERED: CEFD300C37 PO (11:59)
[2020-01-13] MEDS ORDERED: TRIAMCINOLONE CRM 0.1%, 15GM TP SCH (21:00)
== END 2020-01-13 16:50 | disposition home health service (06) | DRG 689 ==
LOC: ED 11:37 → EDIP 12:39 → SUATTDRO 12:50 → 3N 14:07
PROVIDERS: ADMIT Hospitalist; ATTEND Hospitalist
DX: N39.0 Urinary tract infection, site not specified (principal); I26.99 Other pulmonary embolism without acute cor pulmonale; F11.20 Opioid dependence, uncomplicated; I48.20 Chronic atrial fibrillation, unspecified; E46 Unspecified protein-calorie malnutrition; R62.7 Adult failure to thrive; Z86.14 Personal history of Methicillin resistant Staphylococcus aureus infection; I48.0 Paroxysmal atrial fibrillation; I10 Essential (primary) hypertension; F90.9 Attention-deficit hyperactivity disorder, unspecified type; F42.9 Obsessive-compulsive disorder, unspecified; E03.9 Hypothyroidism, unspecified; F41.1 Generalized anxiety disorder; G89.29 Other chronic pain; M54.5 Low back pain; I73.9 Peripheral vascular disease, unspecified; N40.0 Benign prostatic hyperplasia without lower urinary tract symptoms; Z80.1 Family history of malignant neoplasm of trachea, bronchus and lung; Z80.6 Family history of leukemia; Z82.5 Family history of asthma and other chronic lower respiratory diseases; Z80.52 Family history of malignant neoplasm of bladder; Z86.74 Personal history of sudden cardiac arrest; Z86.711 Personal history of pulmonary embolism; Z87.440 Personal history of urinary (tract) infections; Z87.891 Personal history of nicotine dependence; Z87.442 Personal history of urinary calculi; Z68.29 Body mass index [BMI] 29.0-29.9, adult
CPT/HCPCS: 36415; 80053; 81001; 83036; 84439; 84443; 84484; 85025; 85651; 87086; 93306; G0378; J0696; J3480; J2060

== ENCOUNTER → 2020-11-27 | Outpatient (CLI) | payer MEDICARE, BC ==
[~2020-11-27] MED LIST changes: -CYCL-259 PO; +CYCL10TA2 PO; -NABU500T PO; +NABU500T11 PO; -OXYC5TAB3 PO; +OXYC5TAB98 PO
== END | disposition home or self-care (01) ==
LOC: CFH 09:59
PROVIDERS: ATTEND Neurological Surgery
DX: M50.03 Cervical disc disorder with myelopathy, cervicothoracic region (principal); M51.37 Other intervertebral disc degeneration, lumbosacral region; R20.2 Paresthesia of skin; M47.12 Other spondylosis with myelopathy, cervical region; M48.07 Spinal stenosis, lumbosacral region
CPT/HCPCS: 72125; 72148